=== PATIENT | female | born 1960 | race Caucasian/White ===

== ENCOUNTER 2022-11-26 10:03 | Outpatient (REF) | payer OTHER, SELFPAY | END 2022-11-26 10:04 | disposition home or self-care (01) | LOC: HO.BBR 10:03 | PROVIDERS: PCP Physician Assistant; Visit Provider Internal Medicine Hematology & Oncology | DX: Z13.89 Encounter for screening for other disorder (principal) ==

== ENCOUNTER 2023-03-03 10:53 | Outpatient (REF) | payer OTHER, SELFPAY | END 2023-03-03 10:54 | disposition home or self-care (01) | LOC: HO.BBR 10:53 | PROVIDERS: PCP Registered Nurse; Visit Provider Internal Medicine Hematology & Oncology | DX: Z13.89 Encounter for screening for other disorder (principal) ==

== ENCOUNTER 2023-06-01 08:07 | Outpatient (REF) | payer OTHER, SELFPAY | END 2023-06-01 08:08 | disposition home or self-care (01) | LOC: HO.BBR 08:07 | PROVIDERS: PCP Registered Nurse; Visit Provider Internal Medicine Hematology & Oncology | DX: Z13.89 Encounter for screening for other disorder (principal) ==

== ENCOUNTER 2023-09-13 12:37 | Outpatient (REF) | payer OTHER, SELFPAY | END 2023-09-13 12:38 | disposition home or self-care (01) | LOC: HO.BBR 12:37 | PROVIDERS: PCP Registered Nurse; Visit Provider Internal Medicine Hematology & Oncology | DX: Z13.89 Encounter for screening for other disorder (principal) ==

== ENCOUNTER 2023-12-21 08:53 | Outpatient (REF) | payer OTHER, SELFPAY | END 2023-12-21 08:54 | disposition home or self-care (01) | LOC: HO.BBR 08:53 | PROVIDERS: PCP Registered Nurse; Visit Provider Internal Medicine Hematology & Oncology | DX: Z13.89 Encounter for screening for other disorder (principal) ==

== ENCOUNTER 2024-03-20 08:01 | Outpatient (REF) | payer OTHER, SELFPAY | END 2024-03-20 08:02 | disposition home or self-care (01) | LOC: HO.BBR 08:01 | PROVIDERS: PCP Registered Nurse; Visit Provider Internal Medicine Hematology & Oncology | DX: Z13.89 Encounter for screening for other disorder (principal) ==

== ENCOUNTER 2024-06-13 08:11 | Outpatient (REF) | payer OTHER, SELFPAY | END 2024-06-13 08:12 | disposition home or self-care (01) | LOC: HO.BBR 08:11 | PROVIDERS: PCP Registered Nurse; Visit Provider Internal Medicine Hematology & Oncology | DX: Z13.89 Encounter for screening for other disorder (principal) ==

== ENCOUNTER 2024-11-06 12:57 | Outpatient (REF) | payer OTHER, SELFPAY ==
--- OUTSIDE RECORDS SUMMARY | 2024-11-06 14:19 | XMS_ITS | Clinical Summary ---
Author Organization [facility] Address [address] [place] [address] Care Team Providers Care Medical Reviewer Name Role Phone Unknown Primary Care Provider [phone] Allergies Active Allergy Reactions Criticality Noted Date Comments Codeine Unknown/Patient and Family Unable to Define Medium 08/28/2003 Oxycodone-Acetami nophen Other (See Comments),Rash/Derm atitis Low 03/13/2008 Other reaction(s): Gastrointestinal Symptom, Other: vomitting, Gastrointestinal Symptom, Other: vomitting Medications benzonatate (TESSALON) 200 MG capsule TAKE 1 CAPSULE BY MOUTH THREE TIMES DAILY FOR 14 DAYS NEEDED FOR COUGH 3 Active famotidine (PEPCID) 20 MG tablet TAKE 1 TABLET BY MOUTH 1 TIME NEEDED. MAY REPEAT DOSE NEEDED. NOT TO EXCEED 2 TABLETS DAILY 3 Active trimethoprim-polym yxin b (POLYTRIM) ophthalmic solutionIndication s:Bacterial conjunctivitis of left eye Administer 1 drop into the left eye every 4 (four) hours. 10 mL 4 Active Social History Tobacco Use Types Packs/Day Years Used Date Smoking Tobacco: Never Smokeless Tobacco: Never Tobacco Cessation:Counseling Given: Not Answered Alcohol Use Standard Drinks/Week Comments Yes 0 (1 standard drink = 0.6 oz pur e alcohol) Comments No Sex and Gender Information Value Date Recorded Sex Assigned at Not on file Legal Sex Female 6:40 PM EDT Gender Identity Not on file Sexual Orientation Not on file Last Filed Vital Signs Vital Sign Reading Time Taken Comments Blood Pressure 153/80 08/03/2023 6:51 PM EDT Pulse 64 08/03/2023 6:51 PM EDT Temperature 36.2 ??C (97.2 ??F) 08/03/2023 6:51 PM ED T Respiratory Rate - - Oxygen Saturation 96% 08/03/2023 6:51 PM EDT Inhaled Oxygen Concentration - - Weight - - Height - - Body Mass Index - - Plan of Treatment Health Maintenance Due Date Last Done Comments Hepatitis C Virus Screening 1962 HIV Screening 1975 DTaP/Tdap/Td Vaccines (1 - Tdap) 1981 Pap Smear (Ages 21-65) 1983 Mammogram 2002 Colonoscopy 2007 Pneumococcal Vaccines 50+ (1 of 1 - PCV) 2012 Zoster (Shingles) Vaccine (1 of 2) 2012 COVID-19 Vaccine (1 - 2023-2 5 season) 2024 Influenza Vaccine 12/22/2024 RSV Vaccine 60 years and old er and Patients (1 - 1-dose 75+ series) 2037 Hepatitis B Vaccines Aged Out No long er eligible based on patient's age to complete this topic Insurance [facility] Care Teams Medical Reviewer Relationship Specialty Start Date End Date Unknown Unknow Provider Address PCP - General 08/03/23
== END 2024-11-06 12:58 | disposition home or self-care (01) ==
LOC: HO.BBR 12:57
PROVIDERS: PCP Registered Nurse; Visit Provider Internal Medicine Hematology & Oncology
DX: Z13.89 Encounter for screening for other disorder (principal)

== ENCOUNTER 2025-01-09 09:18 | Outpatient (REF) | payer OTHER, SELFPAY ==
[2025-01-09 14:05] LABS: Hematocrit 42.4 % (37.0-47.0); Hemoglobin 13.3 g/dl (12.0-16.0); Mean Corpuscular HGB Conc 31.4 g/dl (31.0-35.0); Mean Corpuscular Hemoglobin 27.8 pg (27.0-33.0); Mean Corpuscular Volume 88.5 fL (80.0-98.0); NRBC Abs Auto 0.000 X10*3/uL (0.0-0.012); NRBC Pct Auto 0.0 /100WBC (0.0-0.2); Platelet Count 374 X10*3/uL (160-400); Red Blood Count 4.79 X10*6/uL (4.20-5.50); White Blood Count 8.4 X10*3/uL (4.8-10.8)
[2025-01-09 14:17] LABS: Hemoglobin A1C 150.4261 umol/L; Total Hemoglobin (HGBA1C) 3485.8644 umol/L
[2025-01-09 14:29] LABS: Microalbum/Creatinine Ratio Ur 25.7 ug/mg cr (<30)
[2025-01-09 14:41] LABS: Alanine Aminotransferase 22 U/L (0-31); Albumin Level 4.1 g/dL (3.5-5.0); Anion Gap 12 (12-20); Aspartate Amino Transferase 31 U/L (5-31); Blood Urea Nitrogen 13 mg/dL (9-16); Calcium 9.2 mg/dL (8.4-10.2); Carbon Dioxide 27 mmol/L (22-29); Chloride 105 mmol/L (96-108); Cholesterol 203 mg/dL (<200); Estimated Glomerular Filt Rate > 60; HDL Cholesterol 58 mg/dL (>40); Iron 73 mcg/dL (30-160); Percent Iron Saturation 28 % (15-50); Potassium 4.4 mmol/L (3.3-5.1); Sodium 140 mmol/L (135-145); Total Iron Binding Capacity 265 mcg/dL (228-428); Total Protein 6.9 g/dL (6.5-8.0); Triglycerides 132 mg/dL (<150); Unsaturated Iron Binding 192 ug/dL
[2025-01-09 14:53] LABS: Folate 10.0 ng/mL (> or = 4.0); Vitamin B12 230 pg/mL (200-900)
[2025-01-09 14:55] LABS: Ferritin 22 ng/mL (10-250)
[2025-01-09 14:59] LABS: Alkaline Phosphatase 114 U/L (39-117)
== END 2025-01-09 09:19 | disposition home or self-care (01) ==
LOC: HO.WFDLDS 09:18
PROVIDERS: PCP Nurse Practitioner Family; Visit Provider Nurse Practitioner Family
DX: Z00.01 Encounter for general adult medical examination with abnormal findings (principal); Z76.89 Persons encountering health services in other specified circumstances; E66.9 Obesity, unspecified; Z68.38 Body mass index [BMI] 38.0-38.9, adult; R73.03 Prediabetes; K76.0 Fatty (change of) liver, not elsewhere classified; E83.110 Hereditary hemochromatosis; M19.09 Primary osteoarthritis, other specified site; R91.1 Solitary pulmonary nodule; L90.0 Lichen sclerosus et atrophicus; J45.20 Mild intermittent asthma, uncomplicated; F41.1 Generalized anxiety disorder; M25.551 Pain in right hip; B35.1 Tinea unguium; F51.04 Psychophysiologic insomnia; Z78.0 Asymptomatic menopausal state; Z82.0 Family history of epilepsy and other diseases of the nervous system; Z71.3 Dietary counseling and surveillance
CPT/HCPCS: 36415; 80053; 80061; 82043; 82306; 82570; 82607; 82728; 82746; 83036; 83540; 84443; 85027; 96127; 99202

== ENCOUNTER 2025-01-09 09:18 | Outpatient (AMB) | payer OTHER, SELFPAY ==
--- NOTE | 2025-01-09 09:22 | MHC.PC.OV ---
Vital Signs 01/09/25 09:23 Height 5 ft 4.96 in Weight 231 lb BMI 38.5 BP 128/86 Blood Pressure Location Rt brachial Position Sitting Respiration 14 Pulse 74 Pulse Source Pulse Oximeter Temp 97.9 F Temp Source Oral Pulse Oximetry (%) 97 Oxygen Delivery Method Room Air Intake Visit Reasons: CPE Intake Note: New patient visit Tile Ditcher Required: No Allergies codeine Allergy (Unknown, Verified 01/09/25 09:55) Unknown oxycodone Allergy (Unknown, Verified 01/09/25 09:55) Unknown Medication List - Last Reconciled 01/09/25 by Toya Ortiz, UNDERGROUND MINER- acetaminophen (Tylenol) 325 mg PO QID PRN albuterol sulfate 90 mcg/actuation 2 inhalations inhalation Q6H PRN Tobacco use date assessed: 01/09/25 Dental Screening Dental Screen Date: 01/09/25 Did you have a dental visit in the last 12 months?: No Did you have a dental problem in the last 6 months where you did not have access to dental care?: No Was dental information given to patient?: Patient has dentist (sees one in March, keeps getting r/s) HPI HPI Comments History of Present Illness Details 64 y/o F with lichen sclerosis, menopause, asthma, hemochromatosis, obesity, OA, prediabetes, hepatic steaotosis, VY nodule (2022) s/p hysterectomy for AUB, c section, R hip, foot Fhx: Mom Alz, Dad epilepsy, Sister HTN, Brother DM 1 Social: , children, [facility] Maintenance: Tdap 2022 Pap 2021, no longer required Cologaurd 2022 negative Mammo ordered today, due 02/2025 DEXA ordered today Specialist EMBEDDED LINUX DEVELOPER [facility], 12/2023 new referral [facility] Heme [facility] Cam in the past; new referral to [facility] placed today. Podiatry Derm Ortho History of Present Illness - The patient is a 64-year-old female presenting to [facility], for a CPE and manage her chronic conditions. Previous PCP: Steven, records rec'd and reviewed - Obesity with BMI 38.5 affects energy and mobility. Interested in mgmt referral. - Asthma maintained with PRN albuterol. refill sent today - Hemochromatosis managed with regular phlebotomies; requires grinder mill operator referral. - Osteoarthritis with associated hip problems. was seeing neos; needs [facility] ref[facility] - Prediabetes and hepatic steatosis; no cirrhosis. - Lichen sclerosus under annual gynecological care. [facility] referral placed. - Insomnia affecting sleep, untreated. Melatonin did not work. Will trial prazosin 1-5mg QHS PRN - Toenail fungal infection observed. Podiatry referral placed. - Family history of Alzheimer?s; significant caregiving impact. Alz. Assoc info provided - SABINO related to loss: refer to [facility] for counseling - Skin check - was going annually to [facility] needs new referral. - Active cycling; menopause contributing to weight management problems. 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 - Engaged in cycling; physical activity impacted by symptoms. - Sturdy body type; historical participation in triathlons. 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 Review of Systems - General: Reports obesity and weight management difficulties. - Respiratory: Reports asthma, maintains with PRN albuterol. - Skin: Reports history of lichen sclerosus. - Musculoskeletal: Reports osteoarthritis with hip pain. - Endocrine: Denies cirrhosis; confirmed hepatic steatosis. - Neurological: Reports insomnia affecting sleep. - Psychiatric: Denies formal treatment; significant emotional stress due to caregiving activities. Physical Exam General: Well developed, well nourished, in no acute distress. Appears stated age. Head: Normocephalic, atraumatic. Eyes: Pupils are equal, round and reactive to light and accommodation. Conjunctivae are clear. Vision grossly normal. Ears: TMs clear AU, EACS WNL Nose: Patent, without discharge. Neck: Supple, no adenopathy or thyromegaly. Breast: Edu on SBE Lungs: Clear to auscultation bilaterally. No rales, rhonchi or wheeze noted. Good air flow in all jack. Heart: Regular rate and rhythm. No murmurs, click, rubs or gallops are noted. Abdomen: Bowel sounds present in all quadrants. The abdomen is soft, nontender, with no masses or organomegaly noted. No hernias are noted. : Deferred. Reviewed BEATRICE & recommendations for routine EMBEDDED LINUX DEVELOPER. Noted history of lichen sclerosus. Pulses: Peripheral pulses are equal and palpable bilaterally. Extremities: No clubbing, cyanosis nor edema is noted. Neurologic: Gait and station normal. Cranial Nerves 2-12 intact. Motor strength grossly symmetrical and intact. No sensory loss. Balance normal. Skin: No rashes, ulcers, or lesions noted. Turgor is good. Skin color is good. Hair and nails are without abnormalities. toenail fungus noted. Psych: Normal eye contact, affect and mood appropriate, and normal interactions. Patient is alert and appropriate to context. Results Pending Discussion Notes I discussed with the patient her need for continued management of her chronic conditions, including obesity, asthma, hemochromatosis, osteoarthritis, prediabetes, hepatic steatosis, and lichen sclerosus. We explored a referral to a grinder mill operator for phlebotomy management and discussed a weight management program with potential inclusion of a dietitian and psychologist for multifaceted support. I proposed a trial of prazosin for insomnia, providing information on potential side effects such as headache. We reviewed the importance of routine mammograms and bone density scans and arranged for further dermatological, orthopedic, and gynecological follow-ups. The emotional impact of caregiving was acknowledged, with recommendations to access Alzheimer's Association support services. I emphasized the importance of the patient portal for efficient communication and management coordination. Patient was given time to ask questions. All questions were answered to their satisfaction. Assessment and Plan 1. Obesity - Weight management program referral. 2. Asthma - Albuterol inhaler refill. 3. Hemochromatosis - Hematology referral for phlebotomy. 4. Osteoarthritis - Orthopedic referral for hip pain. 5. Prediabetes - Lifestyle monitoring advised. 6. Hepatic Steatosis - Acknowledged; continue monitoring. 7. Lichen Sclerosus - Annual gynecological follow-ups. 8. Insomnia - Trial prazosin 1 mg initially. 9. Toenail Fungal Infection - Podiatry referral. 10. Family Alzheimer's History - Alzheimer?s support services recommended. Labs today RTO 6 mo routine check in, sooner PRN Patient Instructions - Follow weight management program as outlined. - Use albuterol as needed for asthma. - Attend scheduled referrals for hematology, orthopedics, dermatology, gynecology, and podiatry. - Participate in physical activity regularly. - Manage insomnia with prescribed medication, prazosin. - Access Alzheimer's Association resources for emotional support. - Utilize patient portal for communication and appointment scheduling. Consent Patient was informed and verbally consented to the use of an ambient scribe for clinic note documentation during this visit. An additional 45 minutes was spent addressing the problem(s) noted at todays visit. This includes time spent before the visit reviewing the chart, time spent during the visit, and time spent after the visit on documentation reviewing laboratory results, diagnostic imaging, medications, performing a medically necessary evaluation, counseling on diagnoses, care coordination, ordering appropriate tests, ordering appropriate medications, review of tests performed by other providers, reporting test results with the patient, communication with other healthcare providers. [facility] Medical History (Updated 01/09/25 @ 10:31 by Toya Ortiz, [facility]) History of Papanicolaou smear of cervix (~2021) Surgical History (Updated 01/09/25 @ 09:07 by MARIA R VelardeP-) H/O section H/O dilation and curettage H/O foot surgery H/O: hysterectomy History of colonoscopy (~02/2023) History of hip surgery Family History (Updated 01/09/25 @ 08:55 by Heather Giles [facility]) Mother Alzheimer dementia Father Epilepsy Sister HTN (hypertension) Brother Diabetes Other FH: mental illness Social History Housing: House Alcohol intake: current Patient Tobacco Use Status: Never used Tobacco e-Cigarette/Vaping Use: Never Used Second Hand Smoke Exposure: Yes service: Yes Current occupational status: employed 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 1. Little interest or pleasure in doing things: several days 2. Feeling down, depressed, or hopeless: several days 3. Trouble falling or staying asleep, or sleeping too much: several days 4. Feeling tired or having little energy: several days 5. Poor appetite or overeating: not at all 6. Feeling bad about yourself - or that you are a failure or have let yourself or your family down: not at all 7. Trouble concentrating on things, such as reading the newspaper or watching television: not at all 8. Moving or speaking so slowly that other people could have noticed. Or the opposite - being so fidgety or restless that you have been moving around a lot more than usual: not at all 9. Thoughts that you would be better off or of hurting yourself in some way: not at all Total score: 4 Depression Screening Interpretation: Negative Depression Screening Done: Yes 05448 - PHQ-9 Billing: Yes Source: Developed by Drs. Andres Garvey, Regla Parish, Balta Mahan and colleagues, with an educational [email or web address] from [employer]. Thrive Questionnaire Date Thrive assessed: 01/09/25 I am a: Patient What is your living situation today?: I have a steady place to live Within the past 12 months, did the food you bought not last and you didn't have the money to get more?: Never true Within the past 12 months, did you worry whether your food would run out before you got money to buy more?: Never true Do you have trouble paying for medicines?: No Do you have trouble getting transportation to medical appointments?: No Do you have trouble paying your heating and electricity bill?: No Do you have trouble taking care of your child, family member or friend?: No Do you have trouble with day-to-day activities such as bathing, preparing meals, shopping, managing finances, etc.?: No Are you currently unemployed and looking for a job?: No Are you interested in more education?: I choose not to answer this question Please select the resources that you would like help with: None Currently or been in a relationship where the following occur: No concerns reported THRIVE Score: 0 AUDIT C Alcohol Use Questionnaire (AUDIT-C) 1. How often do you have a drink containing alcohol?: Monthly or less 2. How many drinks containing alcohol do you have on a typical day when you are drinking?: 1 or 2 3. How often do you have six or more drinks on one occasion?: Never Total Score: 1 Score Reviewed/Action Taken: Yes SABINO-7 AMB Questionnaire SABINO-7 Date SABINO - 7 assessed: 01/09/25 Feeling nervous, anxious, or on edge: 0 = Not at all Not being able to stop or control worryin = Not at all Worrying too much about different things: 0 = Not at all Trouble relaxin = Not at all Being so restless that it is hard to sit still: 1 = Several days Becoming easily annoyed or irritable: 1 = Several days Feeling afraid as if something awful might happen: 0 = Not at all Total SABINO-7 score (0-4 normal; 5-9 mild; 10-14 moderate; 15-21 severe): 2 Source: Developed by Drs. Andres Garvey, Regla Parish, Balta Mahan and colleagues, with an educational [email or web address] from [employer]. SABINO-7 Assessment Billing SABINO-7 Assessment Tool: SABINO-7 Assessment 74723 Physical exam (Primary Care) Vital Signs: Last Vital Signs Temp 97.9 F 01/09/25 09:23 Pulse 74 01/09/25 09:23 Resp 14 01/09/25 09:23 BP 128/86 01/09/25 09:23 Pulse Ox 97 01/09/25 09:23 Oxygen Delivery Method Room Air 01/09/25 09:23 BMI result Body Mass Index 38.5 BMI Assessment/Plan discussion: High BMI High, discussed plan: lifestyle Tobacco/Smoking Status: Tobacco use Status Tobacco use date assessed 01/09/25 01/09/25 09:34 Patient Tobacco Use Status Never used Tobacco 01/09/25 09:34 e-Cigarette/Vaping Use Never Used 01/09/25 09:34 PHQ-9: PHQ-9 Score PHQ-9: Total score 4 01/09/25 09:34 Depression Screening Interpretation: Negative Currently or been in a relationship where the following occur: No concerns reported Coding Level of Care Code New Pt Level 5 (31182) New Pt Prev Care 40-64y(54849) Diagnoses Encounter to establish care with new provider Z76.89 Obesity (BMI 30-39.9) E66.9 Prediabetes R73.03 Hepatic steatosis K76.0 Hereditary hemochromatosis E83.110 Hemochromatosis type: hereditary Menopause Z78.0 Osteoarthritis of other site, unspecified osteoarthritis type M19.09 Osteoarthritis location: other site Osteoarthritis type: unspecified Family history of Alzheimer disease Z82.0 Nodule of left lung R91.1 Lichen sclerosus L90.0 Mild intermittent asthma without complication J45.20 Asthma severity: mild Asthma persistence: intermittent Asthma complication type: uncomplicated SABINO (generalized anxiety disorder) F41.1 Skin cancer screening Z12.83 Right hip pain M25.551 Onychomycosis B35.1 Laboratory exam ordered as part of routine general medical examination Z00.00 Psychophysiological insomnia F51.04 Insomnia type: psychophysiologic Encounter for general adult medical examination without abnormal findings Z00.00 Additional Codes PHQ-9 - 57133 - PHQ-9 Billing: Yes ([id number]) SABINO-7 Assessment Billing - SABINO-7 Assessment Tool: SABINO-7 Assessment 23694 ([id number]) Assessment & Plan Assessment & Plan (1) Encounter to establish care with new provider: Code(s): Z76.89 - Persons encountering health services in other specified circumstances (2) Obesity (BMI 30-39.9): Code(s): E66.9 - Obesity, unspecified Category: Medical (3) Prediabetes: Code(s): R73.03 - Prediabetes Category: Medical (4) Hepatic steatosis: Comment: Code(s): K76.0 - Fatty (change of) liver, not elsewhere classified Category: Medical (5) Hemochromatosis: Code(s): E83.119 - Hemochromatosis, unspecified Category: Medical Qualifiers: Hemochromatosis type: hereditary Qualified Code(s): E83.110 - Hereditary hemochromatosis (6) Menopause: Comment: dexa ordered today Code(s): Z78.0 - Asymptomatic menopausal state Category: Medical (7) Osteoarthritis: Code(s): M19.90 - Unspecified osteoarthritis, unspecified site Category: Medical Qualifiers: Osteoarthritis location: other site Osteoarthritis type: unspecified Qualified Code(s): M19.09 - Primary osteoarthritis, other specified site (8) Family history of Alzheimer disease: Comment: mom Code(s): Z82.0 - Family history of epilepsy and other diseases of the nervous system Category: Medical (9) Nodule of left lung: Comment: VY NOTED ON CT SCAN 2022, [facility] Code(s): R91.1 - Solitary pulmonary nodule Category: Medical (10) Lichen sclerosus: Comment: refer o [facility] EMBEDDED LINUX DEVELOPER Code(s): L90.0 - Lichen sclerosus et atrophicus Category: Medical (11) Asthma: Code(s): J45.909 - Unspecified asthma, uncomplicated Category: Medical Qualifiers: Asthma severity: mild Asthma persistence: intermittent Asthma complication type: uncomplicated Qualified Code(s): J45.20 - Mild intermittent asthma, uncomplicated (12) SABINO (generalized anxiety disorder): Code(s): F41.1 - Generalized anxiety disorder Category: Medical (13) Skin cancer screening: Code(s): Z12.83 - Encounter for screening for malignant neoplasm of skin Category: Medical (14) Right hip pain: Code(s): M25.551 - Pain in right hip Category: Medical (15) Onychomycosis: Code(s): B35.1 - Tinea unguium Category: Medical (16) Laboratory exam ordered as part of routine general medical examination: Code(s): Z00.00 - Encounter for general adult medical examination without abnormal findings Category: Medical (17) Insomnia: Code(s): G47.00 - Insomnia, unspecified Category: Medical Qualifiers: Insomnia type: psychophysiologic Qualified Code(s): F51.04 - Psychophysiologic insomnia (18) Encounter for general adult medical examination without abnormal findings: Onset Date: ~01/09/25 Code(s): Z00.00 - Encounter for general adult medical examination without abnormal findings Category: Medical Plan . Orders: Orders Complete Blood Count no Diff Today E66.9 - Obesity, unspecified, E83.110 - Hereditary hemochromatosis, F41.1 - Generalized anxiety disorder, K76.0 - Fatty (change of) liver, not elsewhere classified, R73.03 - Prediabetes, Z00.00 - Encounter for general adult medical examination without abnormal findings Ferritin Today E66.9 - Obesity, unspecified, E83.110 - Hereditary hemochromatosis, F41.1 - Generalized anxiety disorder, K76.0 - Fatty (change of) liver, not elsewhere classified, R73.03 - Prediabetes, Z00.00 - Encounter for general adult medical examination without abnormal findings Hemoglobin A1c Today E66.9 - Obesity, unspecified, E83.110 - Hereditary hemochromatosis, F41.1 - Generalized anxiety disorder, K76.0 - Fatty (change of) liver, not elsewhere classified, R73.03 - Prediabetes, Z00.00 - Encounter for general adult medical examination without abnormal findings Vitamin B12 and Folate Today E66.9 - Obesity, unspecified, E83.110 - Hereditary hemochromatosis, F41.1 - Generalized anxiety disorder, K76.0 - Fatty (change of) liver, not elsewhere classified, R73.03 - Prediabetes, Z00.00 - Encounter for general adult medical examination without abnormal findings MM tomosynthesis screening BI Today Z12.31 - Encounter for screening mammogram for malignant neoplasm of breast XR DEXA axial skeleton Today Z13.820 - Encounter for screening for osteoporosis, Z78.0 - Asymptomatic menopausal state Comprehensive Met. Panel Today E66.9 - Obesity, unspecified, E83.110 - Hereditary hemochromatosis, F41.1 - Generalized anxiety disorder, K76.0 - Fatty (change of) liver, not elsewhere classified, R73.03 - Prediabetes, Z00.00 - Encounter for general adult medical examination without abnormal findings IRON PROFILE Today E66.9 - Obesity, unspecified, E83.110 - Hereditary hemochromatosis, F41.1 - Generalized anxiety disorder, K76.0 - Fatty (change of) liver, not elsewhere classified, R73.03 - Prediabetes, Z00.00 - Encounter for general adult medical examination without abnormal findings Lipid Panel Today E66.9 - Obesity, unspecified, E83.110 - Hereditary hemochromatosis, F41.1 - Generalized anxiety disorder, K76.0 - Fatty (change of) liver, not elsewhere classified, R73.03 - Prediabetes, Z00.00 - Encounter for general adult medical examination without abnormal findings Microalbumin, Random (w Creat) Today E66.9 - Obesity, unspecified, E83.110 - Hereditary hemochromatosis, F41.1 - Generalized anxiety disorder, K76.0 - Fatty (change of) liver, not elsewhere classified, R73.03 - Prediabetes, Z00.00 - Encounter for general adult medical examination without abnormal findings TSH reflex Free T4 Today E66.9 - Obesity, unspecified, E83.110 - Hereditary hemochromatosis, F41.1 - Generalized anxiety disorder, K76.0 - Fatty (change of) liver, not elsewhere classified, R73.03 - Prediabetes, Z00.00 - Encounter for general adult medical examination without abnormal findings Vitamin D 25-OH Total Today E66.9 - Obesity, unspecified, E83.110 - Hereditary hemochromatosis, F41.1 - Generalized anxiety disorder, K76.0 - Fatty (change of) liver, not elsewhere classified, R73.03 - Prediabetes, Z00.00 - Encounter for general adult medical examination without abnormal findings Referrals Nurse Navigator Referral F41.1 - Generalized anxiety disorder Orthopedics Referral M19.90 - Unspecified osteoarthritis, unspecified site, M25.551 - Pain in right hip Hematology & Oncology Referral E83.119 - Hemochromatosis, unspecified Dermatology Referral Z12.83 - Encounter for screening for malignant neoplasm of skin COMMUTATOR ASSEMBLER Referral L90.0 - Lichen sclerosus et atrophicus, Z12.4 - Encounter for screening for malignant neoplasm of cervix Podiatry Referral B35.1 - Tinea unguium Medical Weight Management Referral E66.9 - Obesity, unspecified Medications: New prazosin 1 mg PO BEDTIME PRN 90 caps 0RF insomnia albuterol sulfate 90 mcg/actuation 2 inhalations inhalation Q6H PRN 1 ea 2RF shortness of breath Patient Instructions: Walk-In Care (Urgent Care): We Make it Easy Walk-in for urgent medical issues such as: ? Seasonal Allergies ? Insect Bites ? Cough ? Diarrhea ? Acute Asthma Attacks ? Back, Knee or Joint Pain ? Ear Infection ? Fever without a Rash ? Headaches ? Nausea ? [place], Rash or Skin Irritation ? Sore Throat ? Sports Physicals ? Vomiting Most insurances are accepted. Patients do not need to be part of the [facility] to seek care at the walk-in clinic. Locations [facility] , [place] [address] ? [phone] [facility] Walk-In Care in [place] provides services to ages 18 and over. Open Wednesday-Wednesday: 8 a.m. to 5 p.m. and Wednesday: 9 a.m. to 3 p.m.* *Hours may vary due to staffing availability. To confirm Walk-In Care hours in [place], please call [phone]. [address] [place] [address] ? [phone] [facility] Walk-In Care in [place] provides services to ages 12 and over. Open Wednesday-Wednesday: 8 a.m. to 5 p.m. Hours may vary due to staffing availability. To confirm Walk-In Care hours in [place], please call [phone]. LABORATORY SERVICES: [facility] Lab ? Primary Location [address] [place] [address] Wednesday through Wednesday 6:00 AM ? 5:00 PM Wednesday 7:00 AM ? 11:00 AM* [phone] The [facility] Lab is centrally located near the front entrance of the [facility] for easy outpatient access. Convenient parking is provided for outpatients. *Hours may vary due to staffing availability. To confirm Laboratory hours for any location, please call [phone]. Offsite Location For your convenience, we offer offsite laboratory draw stations at the following locations: [address] [place] [address] ? [facility] [address] [facility], [address] Wednesday through Wednesday 7:30 AM ? 1:00 PM* [phone] *Hours may vary due to staffing availability. To confirm Laboratory hours for any location, please call [phone]. [place] ? [address] Wednesday through Wednesday 6:00 AM ? 3:30 PM* Wednesday 6:30 AM ? 3 PM* [phone] *Hours may vary due to staffing availability. To confirm Laboratory hours for any location, please call [phone] [place] [address] Wednesday through Wednesday 7:30 AM ? 4:00 PM* [phone] *Hours may vary due to staffing availability. To confirm Laboratory hours for any location, please call [phone] [place] [address] Wednesday through 9:00 AM ? 4:00 PM* *Hours may vary due to staffing availability. To confirm Laboratory hours for any location, please call [phone]. Appointments are not necessary. Walk-ins are welcome. Like all the departments throughout the [facility], our Lab undergoes frequent reviews to ensure the quality and accuracy of test results, and our staff takes special pride in its status as a nationally accredited facility. Patient Portal: ONE PATIENT. ONE RECORD. BETTER CARE. [facility] has a fully integrated, cutting-edge mobile electronic health information system that has revolutionized the way we care for our patients and manage our organization. This system improves communication and coordination enabling us to provide safe, higher-quality care, and an overall positive experience for staff and patients. Our first priority, as always, is to deliver the highest quality care possible. The system is running in the background supporting that priority. This portal is for all [facility] and [facility] services and practices. If you are experiencing any technical difficulties with enrolling or logging into the Patient Portal please complete the [facility] Patient Portal Technical Support Form. [facility] now offers a new secure on-line interactive tool for patients to review their health information ? ?Patient Portal. This interactive web portal will enable patients and their families to take an active role in their care by providing easy, secure access to their health information via the internet. The Patient Portal provides patients with instant access to their health information, including laboratory results, medications, allergies, demographic information, visit history, and more. In addition to managing their own care, parents and health care proxies with authorized consent will appreciate the ability to access the records of those individuals for whom they provide care. Please note: if you wish to gain access (Proxy) to another patient?s portal, you will be required to come to the Medical Records Department in person at [facility]. Both the patient giving proxy access and the proxy will need to provide photo identification and complete the appropriate authorization. The Patient Portal also allows track their appointments online. The [facility] Patient Portal also saves patients time by allowing them to submit updates to their demographic and contact information prior to their visits. Portal email notifications will also alert patients to any new activity on their portal, such as test results and new appointments. In order to initially enroll in the [facility] Patient Portal, you will need to enter some required information including the following: your [facility] Medical Record number your personal home email address name date of Please note: In order to enroll in the [facility] Patient Portal, we need to have your email address on file in your electronic medical record. ?The email address needs to be specific for one person (yourself) in order for your Portal enrollment to be successful. ?You can update your email address in person with our Registration staff when you are registering for a hospital visit. ?Otherwise, you will need to come to the Health Information Management (Medical Records) Department at [facility]. ?We are open from Wednesday ? Wednesday from 7:30 a.m. ? 4:30 p.m. ?You will be required to present a photo id. Once you have successfully enrolled in the Patient Portal, you will receive a one-time user id and password for the Portal, sent to your email address. ?This will allow you to log into the Patient Portal within 99 hrs and reset your own logon id and password, and define personal security questions. ?Once your permanent login and password have been set, you can log into the [facility] Patient Portal at any time via the blue button above or from the Portal Logon button on any page of the [facility] website. [facility] and [facility] encourage all of our patients to enroll in Patient Portal as it presents a valuable opportunity for patients and their families to actively participate in their care and stay healthy Welcome to [facility]. ?We look forward to working with you. Health screenings for women You should visit your health care provider from time to time, even if you are healthy. The purpose of these visits is to: Screen for medical issues Assess your risk for future medical problems Encourage a healthy lifestyle Update vaccinations and other preventive care services Help you get to know your provider in case of an illness Information Even if you feel fine, you should still see your provider for regular checkups. These visits can help you avoid problems in the future. For example, the only way to find out if you have high blood pressure is to have it checked regularly. High blood sugar and high cholesterol levels also may not have any symptoms in the early stages. A simple blood test can check for these conditions. There are specific times when you should see your provider or receive specific health screenings. The [place] Preventive Services Task Force publishes a list of recommended screenings. Below are screening guidelines for women ages 18 to 39. BLOOD PRESSURE SCREENING Your blood pressure should be checked at least once every 3 to 5 years if: Your blood pressure is in the normal range (top number less than 120 mm Hg and bottom number less than 80 mm Hg) You don't have risk factors for high blood pressure Ask your provider if you need your blood pressure checked more often if: The top number is 120 to 129 mm Hg or the bottom number is 70 to 79 mm Hg You have diabetes, heart disease, kidney problems, are overweight, or have certain other health conditions You have a first-degree relative with high blood pressure You are Black You had high blood pressure during a If the top number is 130 mm Hg or greater or the bottom number is 80 mm Hg or greater, this is considered stage 1 hypertension. Schedule an appointment with your provider to learn how you can reduce your blood pressure. Watch for blood pressure screenings in your area. Ask your provider if you can stop in to have your blood pressure checked. BREAST CANCER SCREENING Experts do not agree about the benefits of breast self-exams in finding breast cancer or saving lives. Talk to your provider about what is best for you. A screening mammogram is not recommended for most women under age 40. Your provider may discuss and recommend mammograms, MRI scans, or ultrasounds if you have an increased risk for breast cancer, such as: A mother or sister who had breast cancer at a young age (most often starting screening earlier than the age the close relative was diagnosed) You carry a high-risk genetic marker CERVICAL CANCER SCREENING Cervical cancer screening should start at age 21 years unless your provider advises otherwise. After the first test: Women ages 21 through 29 should have a Pap test every 3 years. Exoprts do not agree on whether HPV testing is recommended for this age group. Women ages 30 through 65 should be screened with either a Pap test every 3 years or the HPV test every 5 years or both tests every 5 years (called cotesting ). Women who have been treated for precancer (cervical dysplasia) should continue to have Pap tests for 20 years after treatment or until age 65, whichever is longer. If you have had your uterus and cervix removed (total hysterectomy), and you have not been diagnosed with cervical cancer or precancer (high grade cervical neoplasia), you do not need cervical cancer screening. CHOLESTEROL SCREENING Cholesterol screening should begin at: Age 45 for women with no known risk factors for coronary heart disease Age 20 for women with known risk factors for coronary heart disease Repeat cholesterol screening should take place: Every 5 years for women with normal cholesterol levels More often if changes occur in lifestyle (including weight gain and diet) More often if you have diabetes, heart disease, kidney problems, or certain other conditions DIABETES SCREENING You should be screened for diabetes starting at age 35 and then repeated every 3 years if you have no risk factors for diabetes. Screening may need to start earlier and be repeated more often if you have other risk factors for diabetes, such as: You have a first degree relative with diabetes. You are overweight or have obesity. You have high blood pressure, prediabetes, or a history of heart disease. Screening for diabetes should be done if you are planning to become and you are overweight and have other risk factors such as high blood pressure. DENTAL EXAM Go to the dentist once or twice every year for an exam and cleaning. Your dentist will evaluate if you need more frequent visits. EYE EXAM Have an eye exam every 5 to 10 years before age 40. If you have vision problems, have an eye exam every 2 years or more often if recommended by your provider. You should have an eye exam that includes an examination of your retina (back of your eye) at least every year if you have diabetes. IMMUNIZATIONS Commonly needed vaccines include: Flu shot: get one every year. COVID-19 vaccine: ask your provider what is best for you. Tetanus-diphtheria and acellular pertussis (Tdap) vaccine: have one at or after age 19 as one of your tetanus-diphtheria vaccines if you did not receive it as an adolescent. Tetanus-diphtheria: have a booster (or Tdap) every 10 years. Varicella vaccine: receive 2 doses if you never had chickenpox or the varicella vaccine. Hepatitis B vaccine: receive 2, 3, or 4 doses, depending on your exact circumstances. Measles, mumps, and rubella (MMR) vaccine: receive 1 to 2 doses if you are not already immune to MMR. Your provider can tell you if you are immune. Ask your provider about the human papillomavirus (HPV) vaccine if: You have not received the HPV vaccine in the past You have not completed the full vaccine series (you should catch up on this shot) Ask your provider if you should receive other immunizations if you have certain health problems that increase your risk for some diseases such as pneumonia. INFECTIOUS DISEASE SCREENING Women who are sexually active should be screened for chlamydia and gonorrhea up until age 25. Women 25 years and older should be screened for chlamydia and gonorrhea if at high risk. Screening for hepatitis C: All adults ages 18 to 79 should get a one-time test for hepatitis C. people should be screened at every . Screening for human immunodeficiency virus (HIV): All people ages 15 to 65 should get a one-time test for HIV. Depending on your lifestyle and medical history, you may also need to be screened for infections such as syphilis and HIV, as well as other infections. PHYSICAL EXAM All adults should visit their provider from time to time, even if they are healthy. The purpose of these visits is to: Screen for disease Assess your risk of future medical problems Encourage a healthy lifestyle Update your vaccinations and other preventive care services Maintain a relationship with a provider in case of an illness Your height, weight, and BMI should be checked at every exam. During your exam, your provider may ask you about: Depression and anxiety Diet and exercise Alcohol and tobacco use Safety issues, such as using seat belts, smoke detectors, and intimate partner violence Your medicines and risk for interactions SKIN SELF-EXAM Your provider may check your skin for signs of skin cancer, especially if you're at high risk, such as if you: Have had skin cancer before Have close relatives with skin cancer Have a weakened immune system OTHER SCREENING Talk with your provider about colon cancer screening if you have a strong family history of colon cancer or polyps, or if you have had inflammatory bowel disease or polyps yourself. Routine bone density screening of women under 40 is not recommended.
[2025-01-09 09:23] VITALS: BP 128/86; PULSE 74; RESP 14; TEMP 36.6; O2SAT 97; BMI 38.5
--- OUTSIDE RECORDS SUMMARY | 2025-01-09 10:20 | XMS_ITS | Clinical Summary ---
Author Organization [facility] Address [address] [place] [address] Care Team Providers Care Electronic Equipment Repairer Name Role Phone Unknown Primary Care Provider [phone] Allergies Active Allergy Reactions Criticality Noted Date [...] 64 08/03/2023 6:51 PM EDT Temperature 36.2 C (97.2 F) 08/03/2023 6:51 PM EDT Respiratory Rate - - Oxygen Saturation 96% [...] patient's age to complete this topic Insurance [facility] Care Teams Electronic Equipment Repairer Relationship Specialty Start Date End Date Unknown Unknow Provider Address PCP - General 08/03/23
--- OUTSIDE RECORDS SUMMARY | 2025-01-09 10:20 | XMS_ITS | Patient Health Record ---
Author Organization [facility] Address [address] [facility] [address] [place] [address] Support Name Relationship Address Phone Ron Walker Emergency Contact [address] [place] [address] Ron Walker Guarantor Unknown [phone] Allergies Allergen (clinical drug ingredient) Drug/Non Drug Allergy documented on EMR Reaction Allergy Type Onset Date Status Deet (uncoded) Severe headache Allergy Active codeine Codeine Sulfate Vomiting Drug Allergy A ctive acetaminophen / oxycodone Percocet Vomiting Drug Allergy Active Reason For Referral No Information Medications Medication SIG (Take, Route, Frequency, Duration) Notes Start Date End Date Status Vitamin D3 75 MCG (3000 UT) 1 tablet Orally Daily Active Diclofenac Sodium 1 % as directed Transd ermal Four times a day when needed Not-Taking Phentermine HCl 37.5 MG 1 tablet Orally Once a day Active Celecoxib 100 MG 1 capsule with food Orally Once a day Not-Taking Social History Tobacco Use: Social History Observation Description Date Details (start date - stop date) Never Smoker NA - NA Tobacco Use/Smoking Question Answer Notes Are you a nonsmoker Problems Problem Type SNOMED Code ICD Code Onset Dates Problem Status W/U Status Risk Notes Problem Morbid obesity (disorder) (890970215) Morbid (severe) obesity due to excess calories (E66.01) Active confirmed Problem Hemochromatosis (707899317) Hemochromatosis, unspecified (E83.119) Active confirmed Problem Dietary management surveillance (979314971) Dietary counseling and surveillance (Z71.3) Active confirmed Problem Uncomplicated mild persistent asthma (603675137) Asthma in adult, mild persistent, uncomplicated (J45.30) Active confirmed Problem Obstructive sleep apnea syndrome (24487030) ARA (obstructive sleep apnea) (G47.33) Active confirmed Problem Prediabetes (005055391) Pre-diabetes (R73.03) Active confirmed Plan Of Treatment No Information Insurance Providers Payer Name Payer Address Payer Phone Subscriber Number Group Number Insured Name Patient Relationship to Insured Coverage Start Date Coverage End Date [employer] / [address] [place] [phone] [id number] Ron Walker Spouse - patient is the spouse of the insured Medical (General) History Medical History History ICD Code ARA H/O Asthma Seasonal affective disorder in the past Pre-diabetic hemochromatosis Surgical History Surgery Date(Month/Year) Reconstructive foot surgery x2 2003; 200 7 Hysterectomy 2009 1981 Hospitalization History Reason Date(Month/Year) Hospitalized due to past surgical histor y
--- OUTSIDE RECORDS SUMMARY | 2025-01-09 10:20 | XMS_ITS ---
Author Name [facility] Organization Unknown History of Medication Use Medication Directions Dispensed Refills Start Date End Date Stat us benzonatate (TESSALON) 200 MG capsule TAKE 1 CAPSULE BY MOUTH THREE TIMES DAILY FOR 14 DAYS NEEDED FOR COUGH 05/20/2023 active Allergies Allergen Reaction Severity Comment Documented Date Source Statu s OXYCODONE-CHRIS TAMINOPHEN RASH/DERMATIT IS Other reaction(s): Gastrointestinal Symptom, Other: vomitting, Gastrointestinal Symptom, Other: vomitting 03/13/2008 [facility] active CODEINE UNKNOWN/PATIE NT AND FAMILY UNABLE TO DEFINE 08/28/2003 [facility] active Problems Problem Status Onset Date Problem Type Date of Resolution Source Bacterial conjunctivitis of left eye active EncounterDiagnosisAct [facility] Encounters Encounter Type Encounter Reason Primary Diagnosis Location Date Ambulatory [facility] 07/06/2024 Ambulatory [facility] 07/05/2024 Ambulatory [facility] 07/05/2024 Ambulatory [facility] 07/03/2024 Ambulatory [facility] 07/03/2024 Ambulatory [facility] 07/03/2024 Ambulatory [facility] 06/26/2024 Ambulatory [facility] 06/22/2024 Ambulatory [facility] 06/13/2024 Ambulatory Unspecified conjunctivitis Unspecified conjunctivitis [facility] 08/03/2023 Care Team Organization Name Specialty Phone Email Start Date End Da [facility] 08/03/2023 08/09/2024 [facility] 08/03/2023 [employer] [employer] [facility] 02/10/2023
--- OUTSIDE RECORDS SUMMARY | 2025-01-09 10:20 | XMS_ITS | Clinical Summary ---
Author Organization [facility] Address [address] [facility] [address] [place] [id number] Phone Care Team Providers Care Diagnostic Sales Specialist Name Role Phone Coreen Santos MD Primary Care Provider [phone] Yves Vazquez MD Unavailable [phone] Allergies Active Allergy Reactions Criticality Noted Date Comments Codeine Unknown 08/28/2003 Oxycodone-Acetami nophen Other (See Comments),Rash Low 03/13/2008 Other reaction(s): Gastrointestinal Symptom, Other: vomitting, Gastrointestinal Symptom, Other: vomitting Medications No known medications Active Problems Problem Noted Date Diagnosed Date Hemochromatosis 05/11/2017 Resolved Problems Problem Noted Date Diagnosed Date Resolved Date Acquired absence of genital organ 02/18/2021 02/18/2021 Family History Medical History Relation Comments Diabetes Brother Relation Status Comments Brother Social History Tobacco Use Types Packs/Day Years Used Date Smoking Tobacco: Never Smokeless Tobacco: Never Education Answer Date Recorded Are you interested in more education? Not on santos e 09/19/2022 Are you concerned about learning? Not on file 09/19/2022 No 09/19/2022 No 09/19/2022 Digital Access Answer Date Recorded No 10/18/2022 No 10/18/2022 No 10/18/2022 Reliable internet access at home? Not on file 10/18/2022 Device with a working camera? Not on file Comments Unknown Sex and Gender Information Value Date Recorded Sex Assigned at Not on file Legal Sex Female 10:38 AM EDT Gender Identity Not on file Sexual Orientation Not on file Last Filed Vital Signs Vital Sign Reading Time Taken Comments Blood Pressure 150/88 09/15/2021 5:11 PM EDT Pulse 72 09/15/2021 5:11 PM EDT Temperature 36.7 C (98.1 F) 09/15/2021 1:35 PM EDT Respiratory Rate 17 09/15/2021 5:11 PM EDT Oxygen Saturation 98% 09/15/2021 5:11 PM EDT Inhaled Oxygen Concentration - - Weight 104.6 kg (230 lb 9.6 oz) 09/15/2021 1:35 PM EDT Height 166.5 cm (5' 5.55 ) 09/15/2021 1:35 PM ED T Body Mass Index 37.73 09/15/2021 1:35 PM EDT Plan of Treatment Health Maintenance Due Date Last Done Comments LIPID PANEL 1962 DEPRESSION SCREENING 1974 HEPATITIS C SCREENING 1980 HIV ONE-TIME SCREENING (18-6 5 YEARS) 1980 PAP SMEAR 1983 SMOKING STATUS SCREENING (On ce After 26 Yrs) 1988 COLOGUARD 2007 COLONOSCOPY 2007 COLORECTAL CANCER SCREENING 2007 FIT TEST 2007 FOBT 2007 SIGMOIDOSCOPY 2007 VIRTUAL COLONOSCOPY 2007 PNEUMOCOCCAL VACCINES (50+ years) (1 of 1 - PCV) 2012 Adult Td,Tdap Booster 05/15/2023 05/15/2013 , 01/07/2004 COVID-19 VACCINE (3 - 2023-2 5 season) 2024 07/01/2020, 06/03/2020 MAMMOGRAM 02/12/2024 02/11/2022, 01/02/2021 RSV VACCINE (1 - 1-dose 75+ series) 2037 ZOSTER VACCINES Completed 12/26/2019, 06/30/2019 HEPATITIS A VACCINES Aged Out No long er eligible based on patient's age to complete this topic HIB VACCINES Aged Out No longer eligi ble based on patient's age to complete this topic MENINGOCOCCAL VACCINES (ACWY) Aged Out No longer eligible based on patient's age to complete this topic MENINGOCOCCAL VACCINES (B) Aged Out N o longer eligible based on patient's age to complete this topic Medical Devices Not on file Procedures Procedure Name Priority Date/Time Associated Diagnosis Comments BI MAMMOGRAM SCREENING WITH TOMOSYNTHESIS WITH CAD (BILATERAL) 02/11/2022 8:20 AM EDT from Last 3 Months or Most Recently Relevant to Health Maintenance Results * Mammogram Screening With Tomosynthesis With CAD (Bilateral) (02/11/2022 8:20 AM EDT) Anatomical Region Laterality Modality Breast Left, Breast Right, Breast Bilateral Bila teral Breast Screening 02/11/2022 7:44 AM EDT Impressions 02/12/2022 6:04 PM EDT : No mammographic evidence of malignancy. BI-RADS Category 1: Negative / Letter A A letter with these results and recommendations will be sent to the patient's mailing address on record. Narrative 02/12/2022 6:04 PM EDT [address] [id number] REASON FOR EXAM: Breast cancer screening COMPARISON: 01/02/2021. HISTORY: Routine annual screening. TECHNIQUE/FINDINGS: Bilateral digital CC and MLO views. Examination was performed and interpreted utilizing 2-D digital and 3-D tomosynthesis technique. Computer-aided detection was utilized by the radiologist in the interpretation of this examination. There are scattered areas of fibroglandular density. BI-RADS density: Category B. No suspicious mass, architectural distortion or suspicious microcalcifications are evident. There has been no significant interval change since the prior examination. Procedure Note Shayla Santos MD - 02/12/[address] [id number] REASON FOR EXAM: Breast cancer screening COMPARISON: 01/02/2021. HISTORY: Routine annual screening. TECHNIQUE/FINDINGS: Bilateral digital CC and MLO views. Examination was performed andinterpreted utilizing 2-D digital and 3-D tomosynthesis technique. Computer-aided detection wasutilized by the radiologist in the interpretation of this examination. There are scattered areas of fibroglandular density. BI-RADS density:Category B. No suspicious mass, architectural distortion or suspiciousmicrocalcifications are evident. There has been no significant interval change since the priorexamination. IMPRESSION: : No mammographic evidence of malignancy. BI-RADS Category 1: Negative / Letter A A letter with these results and recommendations will be sent to thepatient's mailing address on record. [facility] MG EXAMS Final Resu lt from Last 3 Months or Most Recently Relevant to Health Maintenance [place] [facility] Address: [address] [phone] [place] [address] [place] [address] [place] [address] [place] [address] [place] [address] [place] [address] [place] [address] [facility] Address: [facility] [id number] [place] [address] Care Teams Diagnostic Sales Specialist Relationship Specialty Start Date End Date Coreen Santos MD [address] [facility] [address] [place] [address] PCP - General Family Medicine 01/14/21 Yves Vazquez MD [address] [place] [id number] [email or web address] Medical Oncology 01/31/21 Additional Source Comments The information contained in this document represents components of the legal health record. It is not the complete legal health record.[facility]
== END 2025-01-09 10:25 | disposition home or self-care (01) ==
LOC: HO.HMCFM 09:19
PROVIDERS: PCP Nurse Practitioner Family; Visit Provider Nurse Practitioner Family
DX: Z00.00 Encounter for general adult medical examination without abnormal findings (principal); R73.03 Prediabetes; E66.9 Obesity, unspecified; Z68.38 Body mass index [BMI] 38.0-38.9, adult; Z76.89 Persons encountering health services in other specified circumstances; K76.0 Fatty (change of) liver, not elsewhere classified; E83.110 Hereditary hemochromatosis; Z78.0 Asymptomatic menopausal state; M19.09 Primary osteoarthritis, other specified site; Z82.0 Family history of epilepsy and other diseases of the nervous system; R91.1 Solitary pulmonary nodule; L90.0 Lichen sclerosus et atrophicus

== ENCOUNTER → 2025-02-13 14:15 | Outpatient (BNV) | payer OTHER, SELFPAY | PROVIDERS: PCP Nurse Practitioner Family; Referring Provider Nurse Practitioner Family; Visit Provider Internal Medicine Medical Oncology | DX: E83.119 Hemochromatosis, unspecified (principal) | CPT/HCPCS: 99204 ==

== ENCOUNTER 2025-02-19 08:44 | Outpatient (REF) | payer OTHER, SELFPAY ==
[2025-02-19 09:00] LABS: MANUAL DIFF FLAG NO
[2025-02-19 09:02] LABS: Hematocrit 41.7 % (37.0-47.0); Hemoglobin 13.6 g/dl (12.0-16.0); Imm Gran Abs Auto 0.05 X10*3/uL (0.00-0.03); Imm Gran Pct Auto 0.6 % (0.0-0.4); Lymphocytes Absolute Auto 3.7 X10*3/uL (1.2-4.9); Mean Corpuscular HGB Conc 32.6 g/dl (31.0-35.0); Mean Corpuscular Hemoglobin 28.4 pg (27.0-33.0); Mean Corpuscular Volume 87.1 fL (80.0-98.0); NRBC Abs Auto 0.000 X10*3/uL (0.0-0.012); NRBC Pct Auto 0.0 /100WBC (0.0-0.2); Platelet Count 360 X10*3/uL (160-400); Red Blood Count 4.79 X10*6/uL (4.20-5.50); White Blood Count 9.0 X10*3/uL (4.8-10.8)
--- OUTSIDE RECORDS SUMMARY | 2025-02-19 09:09 | XMS_ITS | Clinical Summary ---
Author Organization [facility] Address [address] [facility] [address] [place] [address] Phone Care Team Providers Care County Agricultural Agent Name Role Phone Coreen Santos MD Primary Care Provider [phone] Yves Vazquez MD Unavailable [phone] Allergies Active Allergy Reactions Criticality Noted [...] HEPATITIS C SCREENING 1980 HIV ONE-TIME SCREENING (18-65 YEARS) 1980 PAP SMEAR 1983 SMOKING STATUS SCREENING (Once After 26 Yrs) 1988 COLOGUARD 2007 COLONOSCOPY 2007 COLORECTAL CANCER SCREENING 2007 FIT TEST 2007 FOBT 2007 SIGMOIDOSCOPY 2007 VIRTUAL COLONOSCOPY 2007 PNEUMOCOCCAL VACCINES (50+ years) (1 of 1 - PCV) 2012 Adult Td,Tdap Booster 05/15/2023 05/15/2013, 004 MAMMOGRAM 02/12/2024 02/11/2022, 01/02/2021 INFLUENZA VACCINE (#1) 2024 9, 03/05/2017, 03/24/2016, Additional history exists COVID-19 VACCINE (3 - 2024- season) 2025 07/01/2020, 06/03/2020 RSV VACCINE (1 - 1-dose 75+ series) [...] on record. Narrative 02/12/2022 6:04 PM EDT [address] [address] REASON FOR EXAM: Breast cancer screening COMPARISON: [...] Procedure Note Shayla Santos MD - 02/12/[address] [address] REASON FOR EXAM: Breast cancer screening COMPARISON: [...] Most Recently Relevant to Health Maintenance Insurance [facility] [address] [place] [address] [place] [address] [place] [address] [place] [address] [place] [address] [facility] [place] Care Teams County Agricultural Agent Relationship Specialty Start Date End Date Coreen Santos MD [address] [facility] [address] [place] [address] PCP - General Family Medicine 01/14/21 Yves Vazquez MD [address] [place] [address] [email or web address] Medical Oncology 01/31/21 Additional Source Comments The information contained in this document represents components of the legal health record. It is not the complete legal health record.[facility]
--- OUTSIDE RECORDS SUMMARY | 2025-02-19 09:09 | XMS_ITS | Patient Health Record ---
Author Organization [employer] [facility] Address [address] [facility] [address] [place] [address] Support Name Relationship Address Phone Ron Walker Emergency Contact [phone] [place] [address] Ron Walker Guarantor Unknown Allergies Allergen (clinical drug ingredient) Drug/Non Drug [...] Status Risk Notes Problem Morbid obesity (disorder) (257614106) Morbid (severe) obesity due to excess calories (E66.01) Active confirmed Problem Hemochromatosis (127824595) Hemochromatosis, unspecified (E83.119) Active confirmed Problem Dietary management surveillance (754833733) Dietary counseling and surveillance (Z71.3) Active confirmed Problem Uncomplicated mild persistent asthma (332337288) Asthma in adult, mild persistent, uncomplicated (J45.30) Active confirmed Problem Obstructive sleep apnea syndrome (71503580) ARA (obstructive sleep apnea) (G47.33) Active confirmed Problem Prediabetes (539660205) Pre-diabetes (R73.03) Active confirmed Plan Of Treatment No Information Insurance Providers Payer Name Payer Address Payer Phone Subscriber Number Group Number Insured Name Patient Relationship to Insured Coverage Start Date Coverage End Date WPS / [address] [place] [phone] [id number] Ron Walker Spouse - patient is the spouse of the insured Medical (General) History Medical History History ICD Code ARA H/O Asthma Seasonal affective disorder in the past Pre-diabetic hemochromatosis Surgical History Surgery Date(Month/Year) Reconstructive foot surgery x2 2003; 200 7 Hysterectomy 2009 1981 Hospitalization History Reason Date(Month/Year) Hospitalized due to past surgical histor y
--- OUTSIDE RECORDS SUMMARY | 2025-02-19 09:09 | XMS_ITS | Clinical Summary ---
Author Organization [facility] Address [address] [place] [address] Care Team Providers Care Composite Science Teacher Name Role Phone Unknown Primary Care Provider [phone] Allergies Active Allergy Reactions Criticality Noted Date [...] Zoster (Shingles) Vaccine (1 of 2) 2012 Influenza Vaccine 12/22/2024 COVID-19 Vaccine (1 - 2023-2 5 season) 2025 RSV Vaccine 60 years and old er and Patients (1 - 1-dose 75+ series) 2037 Hepatitis B Vaccines Aged Out No long er eligible based on patient's age to complete this topic Insurance [facility] Care Teams Composite Science Teacher Relationship Specialty Start Date End Date Unknown Unknow Provider Address PCP - General 08/03/23
== END 2025-02-19 08:45 | disposition home or self-care (01) ==
LOC: HO.BBR 08:44
PROVIDERS: PCP Nurse Practitioner Family; Visit Provider Internal Medicine Medical Oncology
DX: E83.110 Hereditary hemochromatosis (principal)
CPT/HCPCS: 36415; 85025

== ENCOUNTER 2025-03-22 07:56 | Outpatient (AMB) | payer OTHER, SELFPAY ==
--- OUTSIDE RECORDS SUMMARY | 2025-03-22 08:01 | XMS_ITS | Patient Health Record ---
Author Organization Purpose [employer] [facility] Address [address] [facility] [address] [place] [address] Support Name Relationship Address Phone Ron Walker Emergency Contact [address] [place] [id number] Ron Walker Guarantor Unknown Allergies Allergen (clinical [...] Status Risk Notes Problem Morbid obesity (disorder) (772667684) Morbid (severe) obesity due to excess calories (E66.01) Active confirmed Problem Hemochromatosis (366138343) Hemochromatosis, unspecified (E83.119) Active confirmed Problem Dietary management surveillance (298330954) Dietary counseling and surveillance (Z71.3) Active confirmed Problem Uncomplicated mild persistent asthma (242581827) Asthma in adult, mild persistent, uncomplicated (J45.30) Active confirmed Problem Obstructive sleep apnea syndrome (08358555) ARA (obstructive sleep apnea) (G47.33) Active confirmed Problem Prediabetes (301326654) Pre-diabetes (R73.03) Active confirmed Plan Of Treatment No Information Insurance Providers Payer Name Payer Address Payer Phone Subscriber Number Group Number Insured Name Patient Relationship to Insured Coverage Start Date Coverage End Date WPS / [address] [place] [id number] Ron Walker Spouse - patient is the spouse of the insured Medical (General) History Medical History History ICD Code ARA H/O Asthma Seasonal affective disorder in the past Pre-diabetic hemochromatosis Surgical History Surgery Date(Month/Year) Reconstructive foot surgery x2 2003; 200 7 Hysterectomy 2009 1981 Hospitalization History Reason Date(Month/Year) Hospitalized due to past surgical histor y
--- OUTSIDE RECORDS SUMMARY | 2025-03-22 08:01 | XMS_ITS ---
Author Name Interface, D[employer] Address [address] [facility] [address] [place] [address] Organization [facility] Address [address] [facility] [address] [place] [address] Support Name Relationship Address Phone Deb Helm Child Unknown Unavailable Sukhwinder Walker Spouse Unknown Unavai lable Allergies and Adverse Reactions Medication/Group Name Reaction Severity Date codeine 12/05/2019 diethyltoluamide Wheezing 12/05/2019 Percocet 12/05/2019 Plan Date Type Value 03/06/2020 APPOINTMENT MD Follow Up 02/28/2020 APPOINTMENT RTC MD 02/28/2020 APPOINTMENT RTC labs 02/28/2020 APPOINTMENT Lab 02/28/2020 APPOINTMENT Lab 12/05/2019 APPOINTMENT MD Follow Up 02/28/2020 LAB_ORDER Iron, % saturati on 02/28/2020 LAB_ORDER Ferritin 02/28/2020 LAB_ORDER CBC auto differe ntial 02/28/2020 LAB_ORDER CMP Reason for Visit MD Follow Up Encounters Date Name 12/05/2019 Hereditary hemochrom atosis (disorder) Diagnostic Results Date Type Test Units Lower Limit Upper Limit Result Flag Comments Status Ordered By Specimen Source Lab Address 02/27 CMP Sodiu m mmol/l 128.0 145.0 141 FINAL [facility], [address] [facility] [address] [place] [id number] 0 02/27 CMP Potas sium mmol/l 3.6 5.1 4.0 FINAL [facility], [address] [facility] [address] [place] [id number] 0 02/27 CMP CO2 mmol/l 18.0 33.0 31 FINAL [facility], [address] [facility] [address] [place] [id number] 0 02/27 CMP Chlor niki mmol/l 98.0 108.0 103 FINAL [facility], [address] [facility] [address] [place] [id number] 0 02/27 CMP Gluco se, rando m mg/dl 73.0 118.0 111 FINAL [facility], [address] [facility] [address] [place] [id number] 0 02/27 CMP Calci um mg/dl 8.0 10.3 9.7 FINAL [facility], [address] [facility] [address] [place] [id number] 0 02/27 CMP BUN mg/dl 7.0 22.0 15 FINAL [facility], [facility] [address] [place] [id number] 0 02/27 CMP Creat inine mg/dl 0.6 1.2 0.8 FINAL [facility], [address] [facility] [address] [place] [id number] 0 02/27 CMP BUN/C reati nine ratio 18.8% FINAL [facility], [address] [facility] [address] [place] [id number] 0 02/27 CMP Alkal ine phosp hatas e u/l 42.0 141.0 108 FINAL [facility], [address] [facility] [address] [place] [id number] 0 02/27 CMP ALT/S GPT u/l 10.0 47.0 23 FINAL [facility], [address] [facility] [address] [place] [id number] 0 02/27 CMP AST/S GOT u/l 11.0 38.0 22 FINAL [facility], [address] [facility] [address] [place] [id number] 0 02/27 CMP Bilir ubin, total MG/DL 0.2 1.6 0.7 FINAL [facility], [address] [facility] [address] [place] [id number] 0 02/27 CMP Album in, mg/dL g/dl 3.5 5.5 3.3 Low FINAL [facility], [address] [facility] [address] [place] [id number] 0 02/27 CMP Total prote in g/dL 6.4 8.1 6.7 FINAL [facility], [address] [facility] [address] [place] [id number] 0 02/27 Mil tin ng/mL 15.0 150.0 140 FINAL [facility], [address] [facility] [place] [id number] 0 02/27 CBC w/ auto diff WBC 10*3/m m*3 4.5 11.0 10.4 FINAL [facility], [address] [facility] [address] [place] [id number] 0 02/27 CBC w/ auto diff RBC 10^6/u l 3.87 4.91 4.82 FINAL [facility], [address] [facility] [address] [place] [id number] 0 02/27 CBC w/ auto diff HGB G/DL 11.7 15.7 14.9 FINAL [facility], [address] [facility] [address] [place] [id number] 0 02/27 CBC w/ auto diff HCT % 35.0 48.0 45.3 FINAL [facility], [address] [facility] [address] [place] [id number] 0 02/27 CBC w/ auto diff MCV UM 82.0 96.0 94 FINAL [facility], [address] [facility] [address] [place] [id number] 0 02/27 CBC w/ auto diff MCH PG 26.0 33.0 31 FINAL [facility], [address] [facility] [address] [place] [id number] 0 02/27 CBC w/ auto diff MCHC G/DL 31.0 35.0 33 FINAL [facility], [address] [facility] [address] [place] [id number] 0 02/27 CBC w/ auto diff RDW 11.5 14.5 14.3% FINAL [facility], [address] [place] [address] [address] [place] [id number] 0 02/27 CBC w/ auto diff RDW-S D 36.4 46.3 47.2% High FINAL [facility], [address] [facility] [address] [place] [id number] 0 02/27 CBC w/ auto diff PLT 10*3/m m*3 140.0 440.0 328 FINAL [facility], [address] [facility] [address] [place] [id number] 0 02/27 CBC w/ auto diff MPV fl 7.0 10.0 10 FINAL [facility], [address] [facility] [address] [place] [id number] 0 02/27 CBC w/ auto diff Herlinda # (ANC) 10*3/m m*3 1.6 7.6 5.5 FINAL [facility], [address] [facility] [address] [place] [id number] 0 02/27 CBC w/ auto diff Herlinda % % 35.0 81.0 52.4 FINAL [facility], [address] [facility] [address] [place] [id number] 0 02/27 CBC w/ auto diff LY # 10*3/m m*3 1.0 3.8 3.7 FINAL [facility], [address] [facility] [address] [place] [id number] 0 02/27 CBC w/ auto diff LY % % 19.0 45.0 35.4 FINAL [facility], [address] [facility] [address] [place] [id number] 0 02/27 CBC w/ auto diff MO # 10*3/m m*3 0.1 1.1 1.0 FINAL [facility], [address] [facility] [address] [place] [id number] 0 02/27 CBC w/ auto diff MO % % 3.0 11.0 9.6 FINAL [facility], [address] [facility] [address] [place] [id number] 0 02/27 CBC w/ auto diff Absol kotzebue neutr ophil count 6^10*3 5465.3 FINAL [facility], [address] [facility] [address] [place] [id number] 0 02/27 CBC w/ auto diff EO # 10*3/m m*3 0.2 FINAL [facility], [address] [facility] [address] [place] [id number] 0 02/27 CBC w/ auto diff EO % % 2.0 FINAL [facility], [address] [facility] [address] [place] [id number] 0 02/27 CBC w/ auto diff BA % % 0.2 FINAL [facility], [address] [facility] [address] [place] [id number] 0 02/27 CBC w/ auto diff BA # x10^3/ uL 0.0 FINAL [facility], [address] [facility] [address] [place] [id number] 0 02/27 CBC w/ auto diff IG % % 0.4 FINAL [facility], [address] [facility] [address] [place] [id number] 0 02/27 CBC w/ auto diff IG # 10*3/m m*3 0.0 FINAL [facility], [address] [facility] [address] [place] [id number] 0 Medications Date Name Route Dose Frequency Instructions Start Date End Date Status Fill Status Indication 11/13 Lidocai ne Topical Patch 5 % topicall y 1.0 per package directions leave on most painful area for up to 12 hrs active 11/13 Albuter ol HFA Inhaler 90 mcg/act uation inhaled 1.0 every 4 to 6 hours prn shortness of breath or wheezing active 11/13 Diclofe nac Topical Gel 1 % topicall y 2.0 4 times per day active 11/13 Choleca lcifero l Oral orally 24050 .0 unit 3 times per week active 11/13 Celecox ib Oral orally 100.0 mg 1 time per week active Problems Diagnosis Status Date of Diagnosis Resolution Date Fatigue Active 10/2019 Hereditary hemochromatosis (disorder) Active 2016 Notes Section * Nurse Note for: 28-FEB-20 [facility] Nurse Note Print Location: Unknown Date/Time Printed: 03/22/2025 04:01 (Brandie/[place]) Patient: Patricia Walker Sex: Female : 1960 Date of Service: 02/28/2020 Allergies : diethyltoluamide, codeine, Percocet Patient Assessment : IV Access/Lab Draw : IV Access-Peripheral - New Start, Needle Type-Butterfly, Needle Size-23 Gauge, Access Site-Right Arm, Lab Drawn-Yes, Access Attempts-1 time(s), Ezsjxayr-rcw-uoa- FE- Ferritin drawn by Lab Jeremy Entered By Rhina Oliveira on 08:59
--- OUTSIDE RECORDS SUMMARY | 2025-03-22 08:01 | XMS_ITS | Clinical Summary ---
Author Organization [facility] Address [address] [place] [address] Care Team Providers Care Nurse Ldr Name Role Phone Unknown Primary Care Provider [phone] Allergies Active Allergy Reactions Criticality Noted Date [...] - 2023-2 5 season) 2025 RSV Vaccine 50 years and old er and Patients (1 - 1-dose 75+ series) 2037 Hepatitis B Vaccines Aged Out No long er eligible based on patient's age to complete this topic Insurance [facility] Care Teams Nurse Ldr Relationship Specialty Start Date End Date Unknown Unknow Provider Address PCP - General 08/03/23
--- OUTSIDE RECORDS SUMMARY | 2025-03-22 08:01 | XMS_ITS | Clinical Summary ---
Author Organization [facility] Address [address] [facility] [address] [place] [address] Phone Care Team Providers Care Machine Baster Name Role Phone Coreen Santos MD Primary Care Provider [phone] Yves Vazquez MD Unavailable Allergies Active Allergy Reactions Criticality Noted Date [...] on record. Narrative 02/12/2022 6:04 PM EDT [address] [address] REASON FOR EXAM: Breast cancer screening COMPARISON: [...] Procedure Note Shayla Santos MD - 02/12/[address] [address] REASON FOR EXAM: Breast cancer screening COMPARISON: [...] Most Recently Relevant to Health Maintenance Insurance [facility] [place] [address] [place] [address] [place] [address] [place] [address] [place] [address] [place] [address] [facility] [place] Care Teams Machine Baster Relationship Specialty Start Date End Date Coreen Santos MD [address] [facility] [address] [place] [address] PCP - General Family Medicine 01/14/21 Yves Vazquez MD [address] [place] [address] [email or web address] Medical Oncology 01/31/21 Additional Source Comments The information contained in this document represents components of the legal health record. It is not the complete legal health record.[facility]
--- OUTSIDE RECORDS SUMMARY | 2025-03-22 08:01 | XMS_ITS | CCD ---
Author Name Interface, [employer] Address [address] [facility] [address] [place] [address] Organization [facility] Address [address] [facility] [address] [place] [address] Care Team Providers Care Indirect Sales Exec Name Role Phone Elida VARNERTyron Unavailable Unavailable Allergies and Adverse Reactions Medication/Group Name Reaction Severity Date codeine 12/05/2019 diethyltoluamide Wheezing 12/05/2019 Percocet 12/05/2019 Reason for Visit MD Follow Up Medications Date Name Route Dose Frequency Instructions Start Date End Date Status Fill Status Indication 11/13 Celecox ib Oral orally 100.0 mg 1 time per week active 11/13 Choleca lcifero l Oral orally [address] .0 unit 3 times per week active 11/13 Albuter ol HFA Inhaler 90 mcg/act uation inhaled 1.0 every 4 to 6 hours prn shortness of breath or wheezing active 11/13 Lidocai ne Topical Patch 5 % topicall y 1.0 per package directions leave on most painful area for up to 12 hrs active 11/13 Diclofe nac Topical Gel 1 % topicall y 2.0 4 times per day active Problems Diagnosis Status Date of Diagnosis Resolution Date Fatigue Active 10/2019 Hereditary hemochromatosis (disorder) Active 2016 Social History Date Name Value 11/14/2019 Sex Female Gender Identity Identifies as fe male
--- NOTE | 2025-03-22 08:25 | MHC.OFFVIS ---
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 Patient was seen by PCP who referred to orthopedics for hip OA, last seen with [facility]. Today patient reports about 10 years she was diagnosed with a torn labrum. Her pain is located in her groin area and increases with prolong sitting or standing. States in the mornings she has quite a bit of stiffness. She uses a peloton bike and performs at home exercises. History of injections that has provided relief in the past. Due to her insurance she was unable to continue care at [facility]. She mentions that she has also received care at [facility] and [facility]. 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 She has pain with prolonged standing and is unable to bend over to put socks on. She can do stairs, but going down stairs she walks sideways. She does not feel she is limited with how far she can walk. [facility] Medical History (Updated 03/22/25 @ 09:36 by Selam Jin PA-C) History of Papanicolaou smear of cervix (~2021) Surgical History (Updated 03/22/25 @ 08:43 by Fadia Acosta Grant) History of colonoscopy (~02/2023) H/O foot surgery H/O: hysterectomy H/O section H/O dilation and curettage Family History Mother Alzheimer dementia Father Epilepsy Sister HTN (hypertension) Alcoholism Brother Diabetes Paternal Aunt Alcoholism Paternal Grandmother Alcoholism Maternal Grandfather Alcoholism Other FH: mental illness Substance abuse Social History Household Members: Spouse Housing: House Are you a primary janitor caretaker to a significant other at home: Yes (each other) Do you presently have visiting nurse or other home services: No Alcohol intake: current Patient Tobacco Use Status: Never used Tobacco e-Cigarette/Vaping Use: Never Used Second Hand Smoke Exposure: Yes service: Yes Current occupational status: employed and retired 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 Current occupational exposures/hazards: No Cognitive needs: No Hearing needs: No Vision needs: Yes (glasses, trouble with left eye) Review of Systems Const All systems reviewed & are unremarkable except as noted in HPI and below Physical Exam Vital Signs: BMI result Body Mass Index 39.5 Const General: cooperative and no acute distress Orientation/consciousness: patient oriented x3 Resp Effort & Inspection: normal respiratory effort and able to speak in complete sentences Cardio Peripheral pulses: Peripheral pulses 2+ throughout Neuro General: patient oriented x3 Extrem Other: Right hip normal to inspection she has limited active range of motion of the hip but I can passively perform range of motion without pain. She is able to perform hip flexion without discomfort. No tenderness over the greater troch. Calf is supple and nontender neurovascularly intact. Results Reviewed Results Reviewed: X-rays of the right hip obtained in the office today and reviewed by me show moderate arthritis of the right hip Assessment & Plan Assessment & Plan (1) Osteoarthritis of right hip: Code(s): M16.11 - Unilateral primary osteoarthritis, right hip Category: Medical Plan: I discussed with the patient the extent of her arthritis however she is not significantly limited and functional capacity due to her arthritis. She is still able to walk long distances and perform most activities. We discussed the benefits of physical therapy for strengthening exercises which she is interested in. She was given some information for this at the visit today. She is also going to keep a log of her activities over the next several weeks and months and keep track of how often she needs to stop and rest due to discomfort. She will touch base with me in the next several months if symptoms persist or worsen to discuss further treatment options. Orders: Orders XR hip RT min 2V Today M25.551 - Pain in right hip Coding Level of Care Code New Pt Level 3 (24206) Complex EM visit Add On G2211 Diagnoses Osteoarthritis of right hip M16.11
[2025-03-22 08:26] VITALS: BMI 39.5
== END 2025-03-22 09:26 | disposition home or self-care (01) ==
LOC: HO.HOS 07:57
PROVIDERS: PCP Nurse Practitioner Family; Visit Provider Physician Assistant
DX: M16.11 Unilateral primary osteoarthritis, right hip (principal)
CPT/HCPCS: 99203

== ENCOUNTER → 2025-03-22 07:58 | Outpatient (BNV) | payer OTHER, SELFPAY | PROVIDERS: Visit Provider Radiology Diagnostic Radiology | DX: M16.11 Unilateral primary osteoarthritis, right hip (principal) | CPT/HCPCS: 73502 ==

== ENCOUNTER 2025-03-22 08:48 | Outpatient (REF) | payer OTHER, SELFPAY ==
--- NOTE | ~2025-03-22 | XR_ITS ---
EXAMINATION: XR HIP 2 OR MORE VIEWS RIGHT HISTORY: M25.551 - Pain in right hip COMPARISON: There are no prior studies available for comparison. FINDINGS: A single AP view of the pelvis and two views of the right hip are submitted. Osseous mineralization is normal. There is no fracture or dislocation. There is mild osteoarthritis with joint space narrowing and osteophyte formation. The soft tissues are unremarkable. XR/XR hip RT min 2V IMPRESSION: Mild osteoarthritis of the right hip. Electronically signed by: Andres Boucher MD 03/22/2025 09:09 AM EDT
--- OUTSIDE RECORDS SUMMARY | 2025-03-23 09:12 | XMS_ITS | Clinical Summary ---
Author Organization [facility] Address [address] [facility] [address] [place] [address] Phone Care Team Providers Care Water/Wastewater Project Engineer Name Role Phone Coreen Santos MD Primary Care Provider [phone] Yves Vazquez MD Unavailable [phone] Allergies Active Allergy Reactions Criticality Noted [...] on record. Narrative 02/12/2022 6:04 PM EDT [address] [address] REASON FOR EXAM: Breast cancer screening COMPARISON: [...] Procedure Note Shayla Santos MD - 02/12/[address] [address] REASON FOR EXAM: Breast cancer screening COMPARISON: [...] Most Recently Relevant to Health Maintenance Insurance [facility] [place] [address] [place] [address] [place] [address] [place] [address] [place] [address] [place] [address] [facility] GLADWIN [place] Care Teams Water/Wastewater Project Engineer Relationship Specialty Start Date End Date Coreen Santos MD [address] [facility] [address] [place] [address] PCP - General Family Medicine 01/14/21 Yves Vazquez MD [address] [place] [address] [email or web address] Medical Oncology 01/31/21 Additional Source Comments The information contained in this document represents components of the legal health record. It is not the complete legal health record.[facility]
--- OUTSIDE RECORDS SUMMARY | 2025-03-23 09:12 | XMS_ITS ---
Author Name Interface, [id number] lity Address [address] [facility] [address] [place] [address] Organization [facility] Address [address] [facility] [address] [place] [address] Support Name Relationship Address Phone Deb Helm [...] 141 FINAL [facility], [address] [facility] [address] [place] [id number] 0 02/27 CMP Potas sium mmol/l 3.6 5.1 4.0 FINAL [facility], [address] [facility] [address] [place] [id number] 0 02/27 CMP CO2 mmol/l 18.0 33.0 31 FINAL [facility], [address] [facility] [address] [place] [id number] 0 02/27 CMP Chlor niki mmol/l 98.0 108.0 103 FINAL [facility], [address] [facility] [address] [place] [id number] 0 02/27 CMP Gluco se, rando m mg/dl 73.0 118.0 111 FINAL [facility], [address] [facility] [address] [place] [id number] 0 02/27 CMP Calci um mg/dl 8.0 10.3 9.7 FINAL [facility], [address] [facility] [address] [place] [id number] 0 02/27 CMP BUN mg/dl 7.0 22.0 15 FINAL Tyron El[facility], [facility] [address] [place] [id number] 0 02/27 CMP Creat inine mg/dl 0.6 1.2 0.8 FINAL [facility], [address] [facility] [address] [place] [id number] 0 02/27 CMP BUN/C reati nine ratio 18.8% FINAL [facility], [address] [facility] [address] [place] [id number] 0 02/27 CMP Alkal ine phosp hatas e u/l 42.0 141.0 108 FINAL [facility], [address] [facility] [address] [place] [id number] 0 02/27 CMP ALT/S GPT u/l 10.0 47.0 23 FINAL [facility], [address] [facility] [place] [id number] 0 02/27 CMP AST/S GOT u/l 11.0 38.0 22 FINAL [facility], [address] [facility] [address] [place] [id number] 0 02/27 CMP Bilir ubin, total MG/DL 0.2 1.6 0.7 FINAL [facility], [address] [facility] [address] [place] [id number] 0 02/27 CMP Album in, mg/dL g/dl 3.5 5.5 3.3 Low FINAL [facility], [address] [facility] [address] [place] [id number] 0 02/27 CMP Total prote in g/dL 6.4 8.1 6.7 FINAL [facility], [address] [facility] [address] [place] [id number] 0 02/27 Mil tin ng/mL 15.0 150.0 140 FINAL Tyroncabrera [facility], [address] [facility] [place] [id number] 0 02/27 CBC w/ auto diff WBC 10*3/m m*3 4.5 11.0 10.4 FINAL [facility], [address] [facility] [address] [place] [id number] 0 02/27 CBC w/ auto diff RBC 10^6/u l 3.87 4.91 4.82 FINAL [facility], [address] [facility] [address] [place] [id number] 0 02/27 CBC w/ auto diff HGB G/DL 11.7 15.7 14.9 FINAL [facility], [address] [facility] [address] [place] [id number] 0 02/27 CBC w/ auto diff HCT % 35.0 48.0 45.3 FINAL [facility], [address] [facility] [address] [place] [id number] 0 02/27 CBC w/ auto diff MCV UM 82.0 96.0 94 FINAL [facility], [address] [facility] [address] [place] [id number] 0 02/27 CBC w/ auto diff MCH PG 26.0 33.0 31 FINAL [facility], [address] [facility] [address] [place] [id number] 0 02/27 CBC w/ auto diff MCHC G/DL 31.0 35.0 33 FINAL [facility], [address] [facility] [address] [place] [id number] 0 02/27 CBC w/ auto diff RDW 11.5 14.5 14.3% FINAL [facility], [address] [place] [address] [address] [place] [id number] 0 02/27 CBC w/ auto diff RDW-S D 36.4 46.3 47.2% High FINAL [facility], [address] [facility] [address] [place] [id number] 0 02/27 CBC w/ auto diff PLT 10*3/m m*3 140.0 440.0 328 FINAL [facility], [address] [facility] [address] [place] [id number] 0 02/27 CBC w/ auto diff MPV fl 7.0 10.0 10 FINAL [facility], [address] [facility] [address] [place] [id number] 0 02/27 CBC w/ auto diff Herlinda # (ANC) 10*3/m m*3 1.6 7.6 5.5 FINAL [facility], [address] [facility] [address] [place] [id number] 0 02/27 CBC w/ auto diff Herlinda % % 35.0 81.0 52.4 FINAL [facility], [address] [facility] [address] [place] [id number] 0 02/27 CBC w/ auto diff LY # 10*3/m m*3 1.0 3.8 3.7 FINAL [facility], [address] [facility] [address] [place] [id number] 0 02/27 CBC w/ auto diff LY % % 19.0 45.0 35.4 FINAL [facility], [address] [facility] [address] [place] [id number] 0 02/27 CBC w/ auto diff MO # 10*3/m m*3 0.1 1.1 1.0 FINAL [facility], [address] [facility] [address] [place] [id number] 0 02/27 CBC w/ auto diff MO % % 3.0 11.0 9.6 FINAL [facility], [address] [facility] [address] [place] [id number] 0 02/27 CBC w/ auto diff Absol [place] neutr ophil count 6^10*3 5465.3 FINAL [facility], [address] [facility] [address] [place] [id number] 0 02/27 CBC w/ auto diff EO # 10*3/m m*3 0.2 FINAL [facility], [address] [facility] [address] [place] [id number] 0 02/27 CBC w/ auto diff EO % % 2.0 FINAL [facility], [address] [facility] [address] [place] [id number] 0 02/27 CBC w/ auto diff BA % % 0.2 FINAL [facility], [address] [facility] -[address] [place] [id number] 0 02/27 CBC w/ auto diff BA # x10^3/ uL 0.0 FINAL [facility], [address] [facility] [address] [place] [id number] 0 02/27 CBC w/ auto diff IG % % 0.4 FINAL [facility], [address] [facility] [address] [place] [id number] 0 02/27 CBC w/ auto diff IG # 10*3/m m*3 0.0 FINAL [facility], [address] [facility] [address] [place] [id number] 0 Medications Date Name Route Dose Frequency [...] active 11/13 Choleca lcifero l Oral orally 52295 .0 unit 3 times per week active 11/13 Celecox ib Oral orally 100.0 mg 1 time per week active Problems Diagnosis Status Date of Diagnosis Resolution Date Fatigue Active 10/2019 Hereditary hemochromatosis (disorder) Active 2016 Notes Section * Nurse Note for: 28-FEB-20 [facility] Nurse Note Print Location: Unknown Date/Time Printed: 03/23/2025 05:12 (Brandie/[place]) Patient: Patricia Walker Sex: Female : 1960 Date of Service: 02/28/2020 Allergies : diethyltoluamide, codeine, Percocet Patient Assessment : IV Access/Lab Draw : IV Access-Peripheral - New Start, Needle Type-Butterfly, Needle Size-23 Gauge, Access Site-Right Arm, Lab Drawn-Yes, Access Attempts-1 time(s), Ahkkmktl-rzp-siy- FE- Ferritin drawn by Lab Jeremy Entered By Rhina Oliveira on 08:59
--- OUTSIDE RECORDS SUMMARY | 2025-03-23 09:12 | XMS_ITS | CCD ---
Author Name Interface, [id number] lity Address [address] [facility] [address] [place] [address] Organization [facility] Address [address] [facility] [address] [place] [address] Care Team Providers Care Power Barker Operator Name Role Phone Elida VARNERTyron Unavailable Unavailable Allergies and Adverse Reactions Medication/Group Name Reaction Severity Date codeine 12/05/2019 diethyltoluamide Wheezing 12/05/2019 Percocet 12/05/2019 Reason for Visit MD Follow Up Medications Date Name Route Dose Frequency Instructions Start Date End Date Status Fill Status Indication 11/13 Celecox ib Oral orally 100.0 mg 1 time per week active 11/13 Choleca lcifero l Oral orally 55669 .0 unit 3 times per week active [...]
--- OUTSIDE RECORDS SUMMARY | 2025-03-23 09:12 | XMS_ITS | Patient Health Record ---
Author Organization [employer] [facility] Address [address] [facility] [address] [place] [address] Support Name Relationship Address Phone Ron Walker Emergency Contact [address] [place] [address] Ron Walker Guarantor Unknown [phone] Allergies Allergen (clinical drug ingredient) Drug/Non Drug [...] Status Risk Notes Problem Morbid obesity (disorder) (361369467) Morbid (severe) obesity due to excess calories (E66.01) Active confirmed Problem Hemochromatosis (688538902) Hemochromatosis, unspecified (E83.119) Active confirmed Problem Dietary management surveillance (760281320) Dietary counseling and surveillance (Z71.3) Active confirmed Problem Uncomplicated mild persistent asthma (042824581) Asthma in adult, mild persistent, uncomplicated (J45.30) Active confirmed Problem Obstructive sleep apnea syndrome (05522599) ARA (obstructive sleep apnea) (G47.33) Active confirmed Problem Prediabetes (872641584) Pre-diabetes (R73.03) Active confirmed Plan Of Treatment No Information Insurance Providers Payer Name Payer Address Payer Phone Subscriber Number Group Number Insured Name Patient Relationship to Insured Coverage Start Date Coverage End Date WPS / [address] [place] [phone] [id number] Ron Walker Spouse - patient is the spouse of the insured Medical (General) History Medical History History ICD Code ARA H/O Asthma Seasonal affective disorder in the past Pre-diabetic hemochromatosis Surgical History Surgery Date(Month/Year) Reconstructive foot surgery x2 2003; 200 7 Hysterectomy 2009 1981 Hospitalization History Reason Date(Month/Year) Hospitalized due to past surgical histor y
--- OUTSIDE RECORDS SUMMARY | 2025-03-23 09:12 | XMS_ITS | Clinical Summary ---
Author Organization [facility] Address [address] [place] [address] Care Team Providers Care Cardiology Clinical Nurse Specialist Name Role Phone Unknown Primary Care Provider [phone] Allergies Active Allergy Reactions Criticality Noted Date [...] patient's age to complete this topic Insurance [facility] Care Teams Cardiology Clinical Nurse Specialist Relationship Specialty Start Date End Date Unknown Unknow Provider Address PCP - General 08/03/23
--- OUTSIDE RECORDS SUMMARY | 2025-03-23 09:12 | XMS_ITS | CCD ---
Author Name Interface, [id number] lity Address [address] [facility] [address] [place] [address] Organization [facility] Address [address] [facility] [address] [place] [address] Care Team Providers Care Printer Slotter Helper Name Role Phone Elida VARNERTyron Unavailable Unavailable Allergies and Adverse Reactions Medication/Group Name Reaction Severity Date codeine 12/05/2019 diethyltoluamide Wheezing 12/05/2019 Percocet 12/05/2019 Reason for Visit MD Follow Up Medications Date Name Route Dose Frequency Instructions Start Date End Date Status Fill Status Indication 11/13 Celecox ib Oral orally 100.0 mg 1 time per week active 11/13 Choleca lcifero l Oral orally [address] .0 unit 3 times per week active [...]
--- OUTSIDE RECORDS SUMMARY | 2025-03-23 09:13 | XMS_ITS ---
Author Name Interface, [id number] lity Address [address] [facility] [address] [place] [address] Organization [facility] Address [address] [facility] [address] [place] [address] Support Name Relationship Address Phone Deb Helm [...] 141 FINAL [facility], [address] [facility] [address] [place] [id number] 0 02/27 CMP Potas sium mmol/l 3.6 5.1 4.0 FINAL [facility], [address] [facility] [address] [place] [id number] 0 02/27 CMP CO2 mmol/l 18.0 33.0 31 FINAL [facility], [address] [facility] [address] [place] [id number] 0 02/27 CMP Chlor niki mmol/l 98.0 108.0 103 FINAL Tyron Elida [facility], [address] [facility] [address] [place] [id number] 0 02/27 CMP Gluco se, rando m mg/dl 73.0 118.0 111 FINAL [facility]ron El[facility], [address] [facility] [address] [place] [id number] 0 02/27 CMP Calci um mg/dl 8.0 10.3 9.7 FINAL [facility], [address] [facility] [address] [place] [id number] 0 02/27 CMP BUN mg/dl 7.0 22.0 15 FINAL Tyron Elida [facility], [facility] [address] [place] [id number] 0 02/27 CMP Creat inine mg/dl 0.6 1.2 0.8 FINAL [facility] El[facility], [address] [facility] [address] [place] [id number] 0 02/27 CMP BUN/C reati nine ratio 18.8% FINAL [facility], [address] [facility] [address] [place] [id number] 0 02/27 CMP Alkal ine phosp hatas e u/l 42.0 141.0 108 FINAL [facility], [address] [facility] [address] [place] [id number] 0 02/27 CMP ALT/S GPT u/l 10.0 47.0 23 FINAL [facility], [address] [facility] [address] [place] [id number] 0 02/27 CMP AST/S GOT u/l 11.0 38.0 22 FINAL [facility] El[facility], [address] [facility] [address] [place] [id number] 0 02/27 CMP Bilir ubin, total MG/DL 0.2 1.6 0.7 FINAL Ty[facility] El[facility], [address] [facility] [address] [place] [id number] 0 02/27 CMP Album in, mg/dL g/dl 3.5 5.5 3.3 Low FINAL [facility], [address] [facility] [address] [place] [id number] 0 02/27 CMP Total prote in g/dL 6.4 8.1 6.7 FINAL [facility], [address] [facility] [address] [place] [id number] 0 02/27 Mil tin ng/mL 15.0 150.0 140 FINAL Tyroncabrera Mar[facility], [address] [facility] [place] [id number] 0 02/27 CBC w/ auto diff WBC 10*3/m m*3 4.5 11.0 10.4 FINAL Tyron El[facility], [address] [facility] [address] [place] [id number] 0 02/27 CBC w/ auto diff RBC 10^6/u l 3.87 4.91 4.82 FINAL [facility], [address] [facility] [address] [place] [id number] 0 02/27 CBC w/ auto diff HGB G/DL 11.7 15.7 14.9 FINAL [facility], [address] [facility] [address] [place] [id number] 0 02/27 CBC w/ auto diff HCT % 35.0 48.0 45.3 FINAL [facility], [address] [facility] [address] [place] [id number] 0 02/27 CBC w/ auto diff MCV UM 82.0 96.0 94 FINAL [facility], [address] [facility] [address] [place] [id number] 0 02/27 CBC w/ auto diff MCH PG 26.0 33.0 31 FINAL [facility], [address] [facility] [address] [place] [id number] 0 02/27 CBC w/ auto diff MCHC G/DL 31.0 35.0 33 FINAL [facility], [address] [facility] [address] [place] [id number] 0 02/27 CBC w/ auto diff RDW 11.5 14.5 14.3% FINAL [facility], [address] [place] [address] [address] [place] [id number] 0 02/27 CBC w/ auto diff RDW-S D 36.4 46.3 47.2% High FINAL [facility], [address] [facility] [address] [place] [id number] 0 02/27 CBC w/ auto diff PLT 10*3/m m*3 140.0 440.0 328 FINAL [facility], [address] [facility] [address] [place] [id number] 0 02/27 CBC w/ auto diff MPV fl 7.0 10.0 10 FINAL [facility], [address] [facility] [address] [place] [id number] 0 02/27 CBC w/ auto diff Herlinda # (ANC) 10*3/m m*3 1.6 7.6 5.5 FINAL [facility], [address] [facility] [address] [place] [id number] 0 02/27 CBC w/ auto diff Herlinda % % 35.0 81.0 52.4 FINAL [facility], [address] [facility] [address] [place] [id number] 0 02/27 CBC w/ auto diff LY # 10*3/m m*3 1.0 3.8 3.7 FINAL [facility], [address] [facility] [address] [place] [id number] 0 02/27 CBC w/ auto diff LY % % 19.0 45.0 35.4 FINAL [facility], [address] [facility] [address] [place] [id number] 0 02/27 CBC w/ auto diff MO # 10*3/m m*3 0.1 1.1 1.0 FINAL [facility], [address] [facility] [address] [place] [id number] 0 02/27 CBC w/ auto diff MO % % 3.0 11.0 9.6 FINAL [facility], [address] [facility] [address] [place] [id number] 0 02/27 CBC w/ auto diff Absol [place] neutr ophil count 6^10*3 5465.3 FINAL [facility], [address] [facility] [address] [place] [id number] 0 02/27 CBC w/ auto diff EO # 10*3/m m*3 0.2 FINAL [facility], [address] [facility] [address] [place] [id number] 0 02/27 CBC w/ auto diff EO % % 2.0 FINAL [facility], [address] [facility] [address] [place] [id number] 0 02/27 CBC w/ auto diff BA % % 0.2 FINAL [facility], [address] [facility] [address] [place] [id number] 0 02/27 CBC w/ auto diff BA # x10^3/ uL 0.0 FINAL Tyron El[facility], [address] [facility] [address] [place] [id number] 0 02/27 CBC w/ auto diff IG % % 0.4 FINAL [facility], [address] [facility] [address] [place] [id number] 0 02/27 CBC w/ auto diff IG # 10*3/m m*3 0.0 FINAL [facility], [address] [facility] [address] [place] [id number] 0 Medications Date Name Route Dose Frequency [...] active 11/13 Choleca lcifero l Oral orally 43107 .0 unit 3 times per week active 11/13 Celecox ib Oral orally 100.0 mg 1 time per week active Problems Diagnosis Status Date of Diagnosis Resolution Date Fatigue Active 10/2019 Hereditary hemochromatosis (disorder) Active 2016 Notes Section * Nurse Note for: 28-FEB-20 [facility] Nurse Note Print Location: Unknown Date/Time Printed: 03/23/2025 05:12 (Brandie/[place]) Patient: Patricia Walker Sex: Female : 1960 Date of Service: 02/28/2020 Allergies : diethyltoluamide, codeine, Percocet Patient Assessment : IV Access/Lab Draw : IV Access-Peripheral - New Start, Needle Type-Butterfly, Needle Size-23 Gauge, Access Site-Right Arm, Lab Drawn-Yes, Access Attempts-1 time(s), Uytgouet-rvb-acj- FE- Ferritin drawn by Lab Jeremy Entered By Rhina Oliveira on 08:59
== END 2025-03-22 08:49 | disposition home or self-care (01) ==
LOC: HO.HOSX 08:48
PROVIDERS: Visit Provider Physician Assistant
DX: M16.11 Unilateral primary osteoarthritis, right hip (principal); Z79.899 Other long term (current) drug therapy
CPT/HCPCS: 73502; 99202

== ENCOUNTER 2025-04-26 07:31 | Outpatient (REF) | payer OTHER, SELFPAY ==
--- NOTE | ~2025-04-26 | MM_ITS ---
STUDY: DUAL ENERGY X-RAY ABSORPTIOMETRY / DXA REASON FOR EXAM: Female, 64 years old Z13.820 - Encounter for screening for osteoporosis TECHNIQUE: Bone Mineral Density (BMD) measurements of the lumbar spine and left hip were obtained using [employer] COMPARISON: None FINDINGS: L2-L4 BMD: 1.402 g/cm2 L2-L4 T score: 1.7. This corresponds to Normal bone density. Left femoral neck BMD: 1.003 g/cm2 Left femoral neck T score: -0.3. This corresponds to Normal bone density. Left total hip BMD: 1.254 g/cm2 Left total hip T score: 2.0. This corresponds to Normal bone density. MM/XR DEXA axial skeleton IMPRESSION: Normal bone density Reference Information: The T-score is the number of standard deviations above or below the standard which is normal for young adults at their peak bone mineral density. The World Health Organization (WHO) interprets the T-scores as follows: At or above -1 SD Normal bone density Between -1 and -2.5 SD Osteopenia At or below -2.5 SD Osteoporosis Electronically signed by: Kayla Jarrell MD 04/26/2025 08:37 AM [facility] [place]
--- OUTSIDE RECORDS SUMMARY | 2025-04-26 07:36 | XMS_ITS | CCD ---
Author Name Interface, [id number] lity Address [address] [facility] [address] [place] [address] Organization [facility] Address [address] [facility] [address] [place] [address] Care Team Providers Care Strap Setter Name Role Phone Elida VARNERTyron Unavailable Unavailable Allergies and Adverse Reactions Medication/Group Name Reaction Severity Date codeine 12/05/2019 diethyltoluamide Wheezing 12/05/2019 Percocet 12/05/2019 Reason for Visit MD Follow Up Medications Date Name Route Dose Frequency Instructions Start Date End Date Status Fill Status Indication 11/13 Celecox ib Oral orally 100.0 mg 1 time per week active 11/13 Choleca lcifero l Oral orally 36539 .0 unit 3 times per week active [...]
--- OUTSIDE RECORDS SUMMARY | 2025-04-26 07:36 | XMS_ITS | Clinical Summary ---
Author Organization [facility] Address [address] [facility] [address] [place] [address] Phone Care Team Providers Care Family Assistant Name Role Phone Coreen Santos MD Primary Care Provider [phone] Yves Vazquez MD Unavailable [phone] Allergies Active Allergy Reactions Criticality Noted [...] on record. Narrative 02/12/2022 6:04 PM EDT [address] [address] REASON FOR EXAM: Breast cancer screening COMPARISON: [...] Procedure Note Shayla Santos MD - 02/12/[address] [address] REASON FOR EXAM: Breast cancer screening COMPARISON: [...] Most Recently Relevant to Health Maintenance Insurance [facility] [place] [address] [address] [place] [address] [place] [address] [place] [address] [place] [address] [place] [address] [facility] [place] Care Teams Family Assistant Relationship Specialty Start Date End Date Coreen Santos MD [address] [facility] [address] [place] [address] PCP - General Family Medicine 01/14/21 Yves Vazquez MD [address] [place] [address] [email or web address] Oncology 01/31/21 Additional Source Comments The information contained in this document represents components of the legal health record. It is not the complete legal health record.[facility]
--- OUTSIDE RECORDS SUMMARY | 2025-04-26 07:36 | XMS_ITS | Clinical Summary ---
Author Organization [facility] Address [address] [place] [address] Care Team Providers Care Acid Etch Operator Name Role Phone Unknown Primary Care Provider [phone] Allergies Active Allergy Reactions Criticality Noted Date [...] age to complete this topic Insurance [facility] Care Teams Acid Etch Operator Relationship Specialty Start Date End Date Unknown Unknow Provider Address PCP - General 08/03/23
--- OUTSIDE RECORDS SUMMARY | 2025-04-26 07:36 | XMS_ITS | Patient Health Record ---
Author Organization [employer] [facility] Address [address] [place] [address] Support Name Relationship Address Phone Ron Walker Emergency Contact [address] [address] Ron Walker Guarantor Unknown Allergies Allergen (clinical [...] Status Risk Notes Problem Morbid obesity (disorder) (357614841) Morbid (severe) obesity due to excess calories (E66.01) Active confirmed Problem Hemochromatosis (049823594) Hemochromatosis, unspecified (E83.119) Active confirmed Problem Dietary management surveillance (541943138) Dietary counseling and surveillance (Z71.3) Active confirmed Problem Uncomplicated mild persistent asthma (461250406) Asthma in adult, mild persistent, uncomplicated (J45.30) Active confirmed Problem Obstructive sleep apnea syndrome (30602380) ARA (obstructive sleep apnea) (G47.33) Active confirmed Problem Prediabetes (923121524) Pre-diabetes (R73.03) Active confirmed Plan Of Treatment No Information Insurance Providers Payer Name Payer Address Payer Phone Subscriber Number Group Number Insured Name Patient Relationship to Insured Coverage Start Date Coverage End Date WPS / [address] [place] [phone] [id number] Ron Walker Spouse - patient is the spouse of the insured Medical (General) History Medical History History ICD Code ARA H/O Asthma Seasonal affective disorder in the past Pre-diabetic hemochromatosis Surgical History Surgery Date(Month/Year) Reconstructive foot surgery x2 2003; 200 7 Hysterectomy 2009 1981 Hospitalization History Reason Date(Month/Year) Hospitalized due to past surgical histor y
--- OUTSIDE RECORDS SUMMARY | 2025-04-26 07:36 | XMS_ITS ---
Author Name Interface, [id number] lity Address [address] [place] [address] Organization [facility] Address [address] [place] [address] Support Name Relationship Address Phone Deb Helm [...] 141 FINAL [facility], [address] [place] [id number] 0 02/27 CMP Potas sium mmol/l 3.6 5.1 4.0 FINAL [facility], [address] [place] [id number] 0 02/27 CMP CO2 mmol/l 18.0 33.0 31 FINAL [facility], [address] [place] [id number] 0 02/27 CMP Chlor niki mmol/l 98.0 108.0 103 FINAL [facility], [address] [place] [id number] 0 02/27 CMP Gluco se, rando m mg/dl 73.0 118.0 111 FINAL [facility], [address] [place] [id number] 0 02/27 CMP Calci um mg/dl 8.0 10.3 9.7 FINAL [facility], [address] [place] [id number] 0 02/27 CMP BUN mg/dl 7.0 22.0 15 FINAL [facility], [facility] [facility] [address] [place] [id number] 0 02/27 CMP Creat inine mg/dl 0.6 1.2 0.8 FINAL [facility], [address] [place] [id number] 0 02/27 CMP BUN/C reati nine ratio 18.8% FINAL [facility], [address] [facility] [address] [place] [id number] 0 02/27 CMP Alkal ine phosp hatas e u/l 42.0 141.0 108 FINAL [facility], [address] [facility] [address] [facility] [place] [id number] 0 02/27 CMP ALT/S GPT u/l 10.0 47.0 23 FINAL [facility], [address] [facility] [address] [place] [id number] 0 02/27 CMP AST/S GOT u/l 11.0 38.0 22 FINAL [facility], [address] [place] [id number] 0 02/27 CMP Bilir ubin, total MG/DL 0.2 1.6 0.7 FINAL [facility], [address] [place] [id number] 0 02/27 CMP Album in, mg/dL g/dl 3.5 5.5 3.3 Low FINAL [facility], [address] [facility] [place] [id number] 0 02/27 CMP Total prote in g/dL 6.4 8.1 6.7 FINAL [facility], [address] [facility] [address] [place] [id number] 0 02/27 Mil tin ng/mL 15.0 150.0 140 FINAL [facility], [address] [facility] [place] [id number] 0 02/27 CBC w/ auto diff WBC 10*3/m m*3 4.5 11.0 10.4 FINAL [facility], [address] [facility] [address] [place] [id number] 0 02/27 CBC w/ auto diff RBC 10^6/u l 3.87 4.91 4.82 FINAL [facility], [address] [facility] [address] [place] [id number] 0 02/27 CBC w/ auto diff HGB G/DL 11.7 15.7 14.9 FINAL [facility], [address] [facility] [address] [place] [id number] 0 02/27 CBC w/ auto diff HCT % 35.0 48.0 45.3 FINAL [facility], [address] [facility] [address] [place] [id number] 0 02/27 CBC w/ auto diff MCV UM 82.0 96.0 94 FINAL [facility], [address] [facility] [address] [place] [id number] 0 02/27 CBC w/ auto diff MCH PG 26.0 33.0 31 FINAL [facility], [address] [facility] [address] [place] [id number] 0 02/27 CBC w/ auto diff MCHC G/DL 31.0 35.0 33 FINAL [facility], [address] [facility] [address] [place] [id number] 0 02/27 CBC w/ auto diff RDW 11.5 14.5 14.3% FINAL [facility], [address] [place] [address] [address] [place] [id number] 0 02/27 CBC w/ auto diff RDW-S D 36.4 46.3 47.2% High FINAL [facility], [address] [facility] [address] [place] [id number] 0 02/27 CBC w/ auto diff PLT 10*3/m m*3 140.0 440.0 328 FINAL [facility], [address] [facility] [address] [place] [id number] 0 02/27 CBC w/ auto diff MPV fl 7.0 10.0 10 FINAL [facility], [address] [facility] [address] [place] [id number] 0 02/27 CBC w/ auto diff Herlinda # (ANC) 10*3/m m*3 1.6 7.6 5.5 FINAL [facility], [address] [facility] [address] [place] [id number] 0 02/27 CBC w/ auto diff Herlinda % % 35.0 81.0 52.4 FINAL [facility], [address] [facility] [address] [place] [id number] 0 02/27 CBC w/ auto diff LY # 10*3/m m*3 1.0 3.8 3.7 FINAL [facility], [address] [facility] [address] [place] [id number] 0 02/27 CBC w/ auto diff LY % % 19.0 45.0 35.4 FINAL [facility], [address] [facility] [address] [place] [id number] 0 02/27 CBC w/ auto diff MO # 10*3/m m*3 0.1 1.1 1.0 FINAL [facility], [address] [facility] [address] [place] [id number] 0 02/27 CBC w/ auto diff MO % % 3.0 11.0 9.6 FINAL [facility], [address] [facility] [address] [place] [id number] 0 02/27 CBC w/ auto diff Absol chehalis neutr ophil count 6^10*3 5465.3 FINAL [facility], [address] [facility] [address] [place] [id number] 0 02/27 CBC w/ auto diff EO # 10*3/m m*3 0.2 FINAL [facility], [address] [facility] [address] [place] [id number] 0 02/27 CBC w/ auto diff EO % % 2.0 FINAL [facility], [address] [facility] [place] [id number] 0 02/27 CBC w/ auto diff BA % % 0.2 FINAL [facility], [address] [place] [id number] 0 02/27 CBC w/ auto diff BA # x10^3/ uL 0.0 FINAL [facility], [address] [facility] [address] [place] [id number] 0 02/27 CBC w/ auto diff IG % % 0.4 FINAL [facility], [address] [facility] [address] [place] [id number] 0 02/27 CBC w/ auto diff IG # 10*3/m m*3 0.0 FINAL [facility], [address] [facility] [address] [place] [id number] 0 Medications Date Name Route Dose Frequency [...] active 11/13 Choleca lcifero l Oral orally 93315 .0 unit 3 times per week active 11/13 Celecox ib Oral orally 100.0 mg 1 time per week active Problems Diagnosis Status Date of Diagnosis Resolution Date Fatigue Active 10/2019 Hereditary hemochromatosis (disorder) Active 2016 Notes Section * Nurse Note for: 28-FEB-20 [facility] Nurse Note Print Location: Unknown Date/Time Printed: 04/26/2025 03:36 (Brandie/Marshall) Patient: Patricia Walker Sex: Female : 1960 Date of Service: 02/28/2020 Allergies : diethyltoluamide, codeine, Percocet Patient Assessment : IV Access/Lab Draw : IV Access-Peripheral - New Start, Needle Type-Butterfly, Needle Size-23 Gauge, Access Site-Right Arm, Lab Drawn-Yes, Access Attempts-1 time(s), [id number]- FE- Ferritin drawn by Lab Jeremy Entered By Rhina Oliveira on 08:59
== END 2025-04-26 07:32 | disposition home or self-care (01) ==
LOC: HO.MAMMO 07:31
PROVIDERS: PCP Nurse Practitioner Family; Visit Provider Nurse Practitioner Family
DX: Z12.31 Encounter for screening mammogram for malignant neoplasm of breast (principal); Z13.820 Encounter for screening for osteoporosis; Z78.0 Asymptomatic menopausal state
CPT/HCPCS: 77063; 77067; 77080

== ENCOUNTER → 2025-04-26 08:15 | Outpatient (BNV) | payer OTHER, SELFPAY | PROVIDERS: PCP Nurse Practitioner Family; Visit Provider Radiology Body Imaging | DX: E28.39 Other primary ovarian failure (principal) | CPT/HCPCS: 77080 ==